=== PATIENT | female | born 1990 ===

== ENCOUNTER 2020-10-26 12:54 | Outpatient (REF) | payer OTHER, SELFPAY ==
[2020-10-26 13:23] LABS: COVID-19 Test Negative (Negative)
== END 2020-10-26 12:55 | disposition home or self-care (01) ==
LOC: HO.EMPCOV 12:54
PROVIDERS: Visit Provider Internal Medicine
DX: Z20.828 Contact with and (suspected) exposure to other viral communicable diseases (principal)
CPT/HCPCS: 87635; C9803

== ENCOUNTER 2020-11-22 07:32 | Outpatient (REF) | payer OTHER, SELFPAY ==
[2020-11-22 07:50] LABS: COVID-19 Test Negative (Negative)
== END 2020-11-22 07:33 | disposition home or self-care (01) ==
LOC: HO.EMPCOV 07:32
PROVIDERS: Visit Provider Internal Medicine
DX: Z20.828 Contact with and (suspected) exposure to other viral communicable diseases (principal)
CPT/HCPCS: 87635; C9803

== ENCOUNTER 2021-01-15 08:07 | Outpatient (REF) | payer OTHER, SELFPAY ==
[2021-01-15 08:33] LABS: COVID-19 Test Negative (Negative)
== END 2021-01-15 08:08 | disposition home or self-care (01) ==
LOC: HO.EMPCOV 08:07
PROVIDERS: Visit Provider Internal Medicine
DX: Z20.822 Contact with and (suspected) exposure to COVID-19 (principal)
CPT/HCPCS: 36415; 87635; C9803

== ENCOUNTER 2021-01-21 09:19 | Outpatient (REF) | payer OTHER, SELFPAY ==
[2021-01-21 09:36] LABS: COVID-19 Test Negative (Negative); IDNOW Serial# 55D5AD1C
== END 2021-01-21 09:20 | disposition home or self-care (01) ==
LOC: HO.LAB 09:19
PROVIDERS: Visit Provider Internal Medicine
DX: Z20.822 Contact with and (suspected) exposure to COVID-19 (principal)
CPT/HCPCS: 36415; 87635; C9803

== ENCOUNTER 2021-02-07 08:00 | Outpatient (REF) | payer OTHER, SELFPAY ==
[2021-02-07 08:17] LABS: COVID-19 Test Negative (Negative); IDNOW Serial# 55D5AD1C
== END 2021-02-07 08:01 | disposition home or self-care (01) ==
LOC: HO.EMPCOV 08:00
PROVIDERS: Visit Provider Internal Medicine
DX: Z20.822 Contact with and (suspected) exposure to COVID-19 (principal)
CPT/HCPCS: 36415; 87635; C9803

== ENCOUNTER 2021-03-07 08:11 | Outpatient (REF) | payer OTHER, SELFPAY ==
[2021-03-07 08:41] LABS: COVID-19 Test Negative (Negative)
== END 2021-03-07 08:12 | disposition home or self-care (01) ==
LOC: HO.EMPCOV 08:11
PROVIDERS: Visit Provider Internal Medicine
DX: Z20.822 Contact with and (suspected) exposure to COVID-19 (principal)
CPT/HCPCS: 36415; 87635; C9803

== ENCOUNTER 2021-03-12 08:23 | Outpatient (REF) | payer OTHER, SELFPAY ==
[2021-03-12 09:04] LABS: COVID-19 Test Negative (Negative)
== END 2021-03-12 08:24 | disposition home or self-care (01) ==
LOC: HO.EMPCOV 08:23
PROVIDERS: Visit Provider Internal Medicine
DX: Z20.822 Contact with and (suspected) exposure to COVID-19 (principal)
CPT/HCPCS: 36415; 87635; C9803

== ENCOUNTER 2021-04-03 09:17 | Outpatient (REF) | payer OTHER, SELFPAY ==
[2021-04-03 09:59] LABS: COVID-19 Test Negative (Negative); IDNOW Serial# 55D5AD1C
== END 2021-04-03 09:18 | disposition home or self-care (01) ==
LOC: HO.EMPCOV 09:17
PROVIDERS: Visit Provider Internal Medicine
DX: Z20.822 Contact with and (suspected) exposure to COVID-19 (principal)
CPT/HCPCS: 36415; 87635; C9803

== ENCOUNTER 2022-02-07 14:12 | Outpatient (REF) | payer BC, SELFPAY ==
--- NOTE | ~2022-02-07 | US_ITS ---
EXAMINATION: US VENOUS ULTRASOUND WITH DOPPLER LOWER EXTREMITY, LEFT CLINICAL INFORMATION: Swollen left ankle. COMPARISON: None TECHNIQUE: Ultrasound of the deep veins is performed from the hip to the calf with compression sonography and color and pulse Doppler assessment. Spectral analysis with color-flow imaging is performed. FINDINGS: There is normal venous compression and respiratory variation and augmented flow. The visualized common femoral vein, superficial femoral vein, profunda femoral vein, popliteal vein, and the trifurcation region shows no evidence of deep venous thrombosis. There is no significant popliteal fossa cyst. If the patient's symptoms persist, followup ultrasound in 5 days 7 days might be of value to exclude proximal propagation from a non-visualized calf vein. US/US venous duplex LE LT IMPRESSION: No DVT demonstrated in the left lower extremity.
== END 2022-02-07 14:13 | disposition home or self-care (01) ==
LOC: HO.US 14:12
PROVIDERS: PCP Internal Medicine; Visit Provider Internal Medicine
DX: M79.89 Other specified soft tissue disorders (principal); M25.472 Effusion, left ankle
CPT/HCPCS: 93971

== ENCOUNTER 2022-03-24 22:41 | Emergency (ER) | payer BC, SELFPAY | END 2022-03-24 23:27 | disposition left against medical advice (07) | PROVIDERS: Emergency Provider Emergency Medicine; PCP Internal Medicine | DX: O26.93 Pregnancy related conditions, unspecified, third trimester (principal); Z3A.28 28 weeks gestation of pregnancy ==

== ENCOUNTER 2022-03-25 10:57 | Outpatient (REF) | payer BC, SELFPAY ==
--- NOTE | ~2022-03-25 | US_ITS ---
EXAMINATION: US OBSTETRICAL (BIOPHYSICAL PROFILE) CLINICAL INFORMATION: No movement COMPARISON: None TECHNIQUE: Ultrasound of the pelvis is performed. Biophysical profile is performed over 30 minutes with assessment of breathing, gross body movement, tone, and qualitative amniotic fluid volume. Each matrix is scored 0 or 2, depending if the metric is present. Maximum total score possible is 8. Examination is not intended to assess for anomalies. FINDINGS: POSITION: Cephalic PLACENTA: Anterior AMNIOTIC FLUID INDEX: 22.7 cm. This is upper normal for gestational age. 95th percentiles 23.4 cm. CARDIAC ACTIVITY: 124 beats per minute BIOPHYSICAL PROFILE: Motion: 2 Tone: 2 Breathin Amniotic Fluid: 2 Total score: 8 US/US OB biophysical profile IMPRESSION: 1. Single intrauterine gestation in cephalic position with anterior placenta. 2. Total biophysical score is 8 (scale 0-8). 3. Amniotic fluid index 22.7 cm. which is upper normal. 4. cardiac activity 124 beats per minute.
--- NOTE | ~2022-03-25 | US_ITS ---
EXAMINATION: US VENOUS ULTRASOUND WITH DOPPLER LOWER EXTREMITY, BILATERAL CLINICAL INFORMATION: Leg pain. COMPARISON: None TECHNIQUE: Ultrasound of the deep veins is performed from the hip to the calf with compression sonography and color and pulse Doppler assessment. Spectral analysis with color-flow imaging is performed. FINDINGS: RIGHT: There is normal venous compression and respiratory variation and augmented flow. The visualized common femoral vein, superficial femoral vein, profunda femoral vein, popliteal vein, and the trifurcation region shows no evidence of deep venous thrombosis. No right popliteal cyst. Positive superficial thrombus is seen in the greater saphenous vein at the level the mid thigh with no associated vascular flow. LEFT: There is normal venous compression and respiratory variation and augmented flow. The visualized common femoral vein, superficial femoral vein, profunda femoral vein, popliteal vein, and the trifurcation region shows no evidence of deep venous thrombosis. No left popliteal cyst. The subcutaneous soft tissues are unremarkable. If the patient's symptoms persist, followup ultrasound in 5 days 7 days might be of value to exclude proximal propagation from a non-visualized calf vein. US/US venous duplex LE BI IMPRESSION: 1. No evidence for deep venous thrombosis bilaterally. 2. Positive superficial thrombus in the right greater saphenous vein at the level of the mid thigh.
== END 2022-03-25 10:58 | disposition home or self-care (01) ==
LOC: HO.US 10:57
PROVIDERS: PCP Internal Medicine; Visit Provider Internal Medicine
DX: O26.893 Other specified pregnancy related conditions, third trimester (principal); Z3A.30 30 weeks gestation of pregnancy; M79.604 Pain in right leg; M79.605 Pain in left leg
CPT/HCPCS: 76819; 93970

== ENCOUNTER 2022-04-14 13:55 | Outpatient (REF) | payer BC, SELFPAY ==
--- NOTE | ~2022-04-14 | US_ITS ---
EXAMINATION: US VENOUS ULTRASOUND WITH DOPPLER LOWER EXTREMITY, RIGHT CLINICAL INFORMATION: Follow-up superficial thrombophlebitis COMPARISON: 03/25/2022 TECHNIQUE: Ultrasound of the deep veins is performed from the hip to the calf with compression sonography and color and pulse Doppler assessment. Spectral analysis with color-flow imaging is performed. FINDINGS: Superficial thrombophlebitis is again observed in the right proximal and mid medial thigh, with improvement from the prior study. With regards to the deep venous system, there is normal color flow, compression, phasic flow and augmentation with no evidence for acute DVT. US/US venous duplex LE RT IMPRESSION: Improving superficial thrombophlebitis.
== END 2022-04-14 13:56 | disposition home or self-care (01) ==
LOC: HO.US 13:55
PROVIDERS: Visit Provider Internal Medicine Medical Oncology
DX: I80.01 Phlebitis and thrombophlebitis of superficial vessels of right lower extremity (principal)
CPT/HCPCS: 93971

== ENCOUNTER 2022-05-16 15:46 | Outpatient (REF) | payer BC, SELFPAY ==
--- NOTE | ~2022-05-16 | US_ITS ---
EXAMINATION: US VENOUS ULTRASOUND WITH DOPPLER LOWER EXTREMITY, RIGHT CLINICAL INFORMATION: Right lower extremity pain, thrombophlebitis COMPARISON: 04/14/2022 TECHNIQUE: Ultrasound of the deep veins is performed from the hip to the calf with compression sonography and color and pulse Doppler assessment. Spectral analysis with color-flow imaging is performed. FINDINGS: There is normal venous compression and respiratory variation and augmented flow. The visualized common femoral vein, superficial femoral vein, profunda femoral vein, popliteal vein, and the trifurcation region shows no evidence of deep venous thrombosis. There is no significant popliteal fossa cyst. Dilated professional varicosities seen in the upper mid thigh which demonstrates partial compressibility with small amount of residual thrombus still seen no significant change compared to the prior exam If the patient's symptoms persist, followup ultrasound in 5 days 7 days might be of value to exclude proximal propagation from a non-visualized calf vein. US/US venous duplex LE RT IMPRESSION: No DVT demonstrated in the right lower extremity. Stable appearing superficial thrombophlebitis in a dilated varicose vein
== END 2022-05-16 15:47 | disposition home or self-care (01) ==
LOC: HO.US 15:46
PROVIDERS: Visit Provider Internal Medicine Medical Oncology
DX: M79.604 Pain in right leg (principal); I80.3 Phlebitis and thrombophlebitis of lower extremities, unspecified
CPT/HCPCS: 93971

== ENCOUNTER 2023-09-12 09:01 | Outpatient (AMB) | payer BC, SELFPAY ==
[2023-09-12 09:06] VITALS: BP 92/70; PULSE 118; TEMP 36.9; O2SAT 99; BMI 32.6
--- NOTE | 2023-09-12 09:06 | MHC.OFFWIV ---
Intake Vital Signs 09/12/23 09:06 Height 5 ft Weight 75.75 kg BMI 32.6 BP 92/70 Blood Pressure Location Lt brachial Position Sitting Pulse 118 H Pulse Source Pulse Oximeter Temp 98.4 F Temp Source Oral Pulse Oximetry (%) 99 Oxygen Delivery Method Room Air Intake Visit Reasons: EP, cough, congestion, heart palpitations(masked) Intake Note: Pt is here today c/o severe H/A and bodyaches with heart palpitations Patient Tobacco Use Status: Never used Tobacco Allergies No Known Allergies [No Known Allergies*] Allergy (Verified 09/12/23 09:08) Do you need a note to return to daycare/school/sports/work: No HPI HPI Comments History of Present Illness Details 908 This is a 32-year-old female without significant medical history presenting with fatigue, malaise, body aches and pains, headache, sore throat, and sensation that hearts racing for the past few days. Patient reports she is just getting over COVID, she had COVID in July. 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 She reports all the symptoms came on suddenly 2 days ago. Denies fevers, chills, vision changes, dizziness, weakness, nausea, vomiting, abdominal pain, diarrhea. Not a smoker. No history of PE or DVT. No recent travel reported. Physical exam benign, neuro nonfocal. Likely viral illness versus migraine versus headache. Unlikely meningitis, encephalitis, intracranial hemorrhage, stroke, posterior stroke. Unlikely pneumonia, acute coronary syndrome, pulmonary embolism, arrhythmia. EKG showing sinus tachycardia likely secondary to viral illness. Will discharge patient home with Reglan, Benadryl and Tylenol for headache, will obtain COVID test for viral symptoms.. Educated patient on diagnosis and treatment plan, answered all question, patient verbalizes understanding. At this time patient will be discharged home, advised to return with new or worsening symptoms. Educated on worrisome signs and symptoms and when to return. At this time I feel comfortable discharge home. [facility] Medical History No pertinent past medical history Surgical History Previous section History of cyst of breast Family History Mother Cervical cancer Father No problems noted. 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) Do you presently have visiting nurse or other home services: No Alcohol intake: never Patient Tobacco Use Status: Never used Tobacco e-Cigarette/Vaping Use: Never Used Second Hand Smoke Exposure: No service: No Current occupational status: employed Current occupational exposures/hazards: No Cognitive needs: No Hearing needs: No Vision needs: Yes Review of Systems Const Details: Constitutional : No Weight loss, No Fever, No Chills, + Fatigue, + Malaise ENT/Mouth : No sore throat, No Rhinorrhea Eyes: No Eye Pain, No Swelling, No Redness Cardiovascular : No Chest Pain, No SOB, No Dyspnea on Exertion, No Orthopnea, No Edema, No Palpitations Respiratory : No Cough, No Sputum, No Wheezing Gastrointestinal : No Nausea, No Vomiting, No Diarrhea, No Constipation, No abdominal Pain, No Hematochezia, No Melena Genitourinary : No Dysuria, No Urinary Frequency, No Hematuria, Musculoskeletal : No joint pain, + Myalgias, No Joint Swelling Skin : No Skin Lesions, No rash Neuro : No Weakness, No Numbness, No Dizziness, + Headache Psych : No Anxiety/Panic, No Depression All other systems reviewed and are negative All systems reviewed & are unremarkable except as noted in HPI and below Physical Exam Vital Signs: Last Vital Signs Temp 98.4 F 09/12/23 09:06 Pulse 118 H 09/12/23 09:06 BP 92/70 09/12/23 09:06 Pulse Ox 99 09/12/23 09:06 Oxygen Delivery Method Room Air 09/12/23 09:06 BMI result Body Mass Index 32.6 vss Appearance: Alert.? Oriented X3.? No acute distress.? Head: Normocephalic, atraumatic, no step-offs or deformities Eyes: Pupils equal, round and reactive to light.? Extraocular movements intact, pain-free ENT: Pharynx normal.? Neck: Normal inspection.? Neck supple.? Negative Kernig and Brudzinski CVS: Normal heart rate and rhythm.? Pulses normal.? Respiratory: No respiratory distress.? Breath sounds normal.? Abdomen: Soft and nontender.? Skin: Skin warm and dry.? Normal skin color.? Normal skin turgor.? Extremities: No lower extremity edema.? No calf ttp. 5/5 strength to bilateral upper and lower extremities Neuro: Oriented X 3.? No motor deficit.? No sensory deficit. CN 2-12 intact . Normal [id number], [id number], steady tandem gait normal coordination. Negative Romberg and pronator drift Assessment & Plan Assessment & Plan (1) Viral illness: Code(s): B34.9 - Viral infection, unspecified Plan Take your medications as prescribed. If you were prescribed antibiotics today, it is important that you take your medication to their entirety, do not skip any doses, do not finish them early. Follow-up with your primary care provider this week. Return to the emergency department with new or worsening symptoms. Such as fevers, chills, chest pain, shortness of breath, nausea, vomiting, dizziness, headache, vision changes, lethargy In case of emergency call 911 Orders: Orders BinaxNOW Covid-19 Ag Today B34.9 - Viral infection, unspecified AMB EKG-In Office Today B34.9 - Viral infection, unspecified SARS-CoV2/FLU/RSV Today B34.9 - Viral infection, unspecified Medications: New metoclopramide HCl (Reglan) 10 mg PO Q6H PRN 30 tabs 0RF headache diphenhydramine HCl (Benadryl Allergy) 50 mg PO TID PRN 30 tabs 0RF allergy symptoms acetaminophen (Tylenol) 650 mg (2 x 325 mg) PO Q6H PRN 30 tabs 0RF pain Coding Level of Care Code Est Pt Level 3 (34325) Diagnoses Viral illness B34.9
== END 2023-09-12 14:55 | disposition home or self-care (01) ==
PROVIDERS: PCP Internal Medicine; Visit Provider Physician Assistant
DX: B34.9 Viral infection, unspecified (principal)
CPT/HCPCS: 99213

== ENCOUNTER 2023-09-12 09:27 | Outpatient (REF) | payer BC, SELFPAY ==
[2023-09-12 12:29] LABS: Influenza A PCR NEGATIVE (Negative); Influenza B PCR NEGATIVE (Negative); Resp Syncy Virus RNA Qual PCR NEGATIVE (Negative); SARS COV2 PCR INHOUSE NEGATIVE (Negative)
== END 2023-09-12 09:28 | disposition home or self-care (01) ==
LOC: HO.LAB 09:27
PROVIDERS: Visit Provider Physician Assistant
DX: Z20.822 Contact with and (suspected) exposure to COVID-19 (principal)
CPT/HCPCS: 0241U

== ENCOUNTER 2023-09-12 09:30 | Outpatient (REF) | payer BC, SELFPAY ==
[2023-09-12 10:01] LABS: Binax Now Covid-19 Ag Negative (Negative); Binax Performed by: HO.TORG
[2023-09-12 10:02] LABS: Binax Internal Control QC Valid
== END 2023-09-12 09:31 | disposition home or self-care (01) ==
LOC: HO.HMGCLDS 09:30
PROVIDERS: PCP Internal Medicine; Visit Provider Physician Assistant
DX: B34.9 Viral infection, unspecified (principal); Z11.52 Encounter for screening for COVID-19
CPT/HCPCS: 87811

== ENCOUNTER 2023-09-24 11:22 | Outpatient (AMB) | payer BC, SELFPAY ==
--- NOTE | 2023-09-24 11:37 | AM.OFFVISNUR ---
Intake Intake Visit Reasons: Flu Shot Allergies No Known Allergies [No Known Allergies*] Allergy (Verified 09/12/23 09:08) Office Procedures Flu Questionnaire Does the patient have a severe egg allergy?: No Does the patient have severe life threatening allergies?: No Does the patient have a fever or illness today?: No Has the patient ever had Guillain-Bono Syndrome?: No Has the patient ever had any past reaction to a flu shot?: No Immunizations flu vacc [id number] 6mos up(PF) 60 mcg(15 mcgx4)/0.5 mL IM syringe Performing Provider: Adarsh Jarvis MD Performing Location: [facility] Administered by: Zoey Pereyra RN on 09/24/23 11:37 Dose Route Admin Location Dispensed Lot Number Expiration Date NDC Psychiatric Np 0.5 mL IM Left Deltoid 0.5 mL [id number] 05/22/24 46893-553-62 [employer] VIS Given Date VIS Provided VIS Publication Date 09/24/23 Single Vaccine 21 Eligibility Eligibility Date Funding Source Not [facility] Eligible 09/24/23 Private Coding Assessment & Plan Assessment & Plan Orders: Orders Influenza [id number] Immunization Today Z23 - Encounter for immunization
== END 2023-09-24 11:39 | disposition home or self-care (01) ==
PROVIDERS: PCP Internal Medicine; Visit Provider Internal Medicine
DX: Z23 Encounter for immunization (principal)
CPT/HCPCS: 90471; 90686

== ENCOUNTER 2023-10-05 09:33 | Outpatient (AMB) | payer BC, SELFPAY ==
--- NOTE | 2023-10-05 09:31 | AM.OFFVISNUR ---
Intake Intake Visit Reasons: PPD Allergies No Known Allergies [No Known Allergies*] Allergy (Verified 09/12/23 09:08) Office Meds tuberculin PPD 5 tub. unit/0.1 mL intradermal injection solution Performing Provider: Adarsh Jarvis MD [facility] Administered by: Zoey Pereyra RN on 10/05/23 09:31 Dose Route Admin Location Dispensed Lot Number Expiration Date NDC Business Analyst Manager 0.1 mL intradermal 0.1 mL [id number] 09/21/26 33354-018-26 [employer] Coding Assessment & Plan Assessment & Plan Orders: Orders AMB PPD Planted Today Z11.1 - Encounter for screening for respiratory tuberculosis
== END 2023-10-05 09:34 | disposition home or self-care (01) ==
LOC: HO.HMGH 09:33
PROVIDERS: PCP Internal Medicine; Visit Provider Internal Medicine
DX: Z11.1 Encounter for screening for respiratory tuberculosis (principal)
CPT/HCPCS: 86580

== ENCOUNTER 2023-10-16 10:11 | Outpatient (REF) | payer BC, SELFPAY ==
[2023-10-16 10:21] LABS: MANUAL DIFF FLAG NO
[2023-10-16 10:26] LABS: Basophils Percent Auto 0.5 % (0-2); Eosinophils Percent Auto 0.7 % (0-4); Hematocrit 39.8 % (37.0-47.0); Hemoglobin 13.5 g/dl (12.0-16.0); Imm Gran Abs Auto 0.01 X10*3/uL (0.00-0.03); Imm Gran Pct Auto 0.2 % (0.0-0.4); Lymphocytes Absolute Auto 2.4 X10*3/uL (1.2-4.9); Lymphocytes Percent Auto 39.3 % (20-40); Mean Corpuscular HGB Conc 33.9 g/dl (31.0-35.0); Mean Corpuscular Hemoglobin 31.3 pg (27.0-33.0); Mean Corpuscular Volume 92.1 fL (80.0-98.0); Mean Platelet Volume 9.8 fL (9.4-12.3); Monocytes Absolute Auto 0.5 X10*3/uL (0.1-1.2); Monocytes Percent Auto 7.5 % (2-11); Neutrophils Absolute Auto 3.2 x10*3/uL (2.0-8.3); Neutrophils Percent Auto 51.8 % (45-73); Platelet Count 247 X10*3/uL (160-400); Red Blood Count 4.32 X10*6/uL (4.20-5.50); Red Cell Distribution Width 11.9 % (11.0-16.0); White Blood Count 6.1 X10*3/uL (4.8-10.8)
[2023-10-16 11:04] LABS: Estimated Average Glucose 97 mg/dL; Hemoglobin A1C 107.5631 umol/L
[2023-10-16 11:10] LABS: Alanine Aminotransferase 27 U/L (0-31); Albumin Level 4.5 g/dL (3.5-5.0); Alkaline Phosphatase 65 U/L (39-117); Anion Gap 12 (12-20); Aspartate Amino Transferase 24 U/L (5-31); Bilirubin Total 1.1 mg/dL (0.0-1.0); Blood Urea Nitrogen 10 mg/dL (9-16); Calcium 9.6 mg/dL (8.4-10.2); Carbon Dioxide 26 mmol/L (22-29); Chloride 106 mmol/L (96-108); Cholesterol 235 mg/dL (<200); Estimated Glomerular Filt Rate > 60; Glucose Random 82 mg/dL (60-115); HDL Cholesterol 42 mg/dL (>40); LDL Cholesterol Calculated 176 mg/dL (<100); Potassium 4.1 mmol/L (3.3-5.1); Sodium 140 mmol/L (135-145); Total Protein 8.5 g/dL (6.5-8.0); Triglycerides 87 mg/dL (<150)
[2023-10-16 11:28] LABS: Free T4 (Free Thyroxine) 0.93 ng/dL (0.71-1.85); Thyroid Stimulating Hormone 1.63 uIU/mL (0.32-4.0)
[2023-10-16 11:41] LABS: Folate 17.2 ng/mL (> or = 4.0); Vitamin B12 1329 pg/mL (200-900)
== END 2023-10-16 10:12 | disposition home or self-care (01) ==
LOC: HO.LAB 10:11
PROVIDERS: PCP Internal Medicine; Visit Provider Internal Medicine
DX: I80.9 Phlebitis and thrombophlebitis of unspecified site (principal); E78.00 Pure hypercholesterolemia, unspecified; E55.9 Vitamin D deficiency, unspecified; R73.9 Hyperglycemia, unspecified
CPT/HCPCS: 36415; 80053; 80061; 82306; 82607; 82746; 83036; 84439; 84443; 85025

== ENCOUNTER 2023-10-19 14:58 | Outpatient (AMB) | payer BC, SELFPAY ==
--- NOTE | 2023-10-19 14:59 | A.OFFPC_ITS ---
Vital Signs 10/19/23 15:00 Height 5 ft Weight 162 lb BMI 31.6 Blood Pressure Location Lt brachial Position Sitting Pulse 70 Pulse Source Pulse Oximeter Pulse Oximetry (%) 100 Oxygen Delivery Method Room Air Intake Visit Reasons: Annual PE Intake Note: Patient is here today for a physical. 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 Allergies No Known Allergies [No Known Allergies*] Allergy (Verified 10/19/23 15:00) Medication List - Last Reconciled 10/19/23 by Adarsh Jarvis MD multivitamin 1 tab PO DAILY Tobacco use date assessed: 10/19/23 Dental Screening Dental Screen Date: 10/19/23 Did you have a dental visit in the last 12 months?: Yes Did you have a dental problem in the last 6 months where you did not have access to dental care?: No Was dental information given to patient?: Patient has dentist HPI Annual PE HPI Details 32-year-old obese female with hyperchole sterolemia coming in for physical exam last seen in September 2022.goes to [facility] and states had an injection [facility] Medical History No pertinent past medical history Surgical History Previous section History of cyst of breast Family History Mother Cervical cancer Father No problems noted. 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 1. Little interest or pleasure in doing things: not at all 2. Feeling down, depressed, or hopeless: not at all 3. Trouble falling or staying asleep, or sleeping too much: not at all 4. Feeling tired or having little energy: not at all 5. Poor appetite or overeating: not at all 6. Feeling bad about yourself - or that you are a failure or have let yourself or your family down: not at all 7. Trouble concentrating on things, such as reading the newspaper or watching television: not at all 8. Moving or speaking so slowly that other people could have noticed. Or the opposite - being so fidgety or restless that you have been moving around a lot more than usual: not at all 9. Thoughts that you would be better off or of hurting yourself in some way: not at all Total score: 0 Depression Screening Interpretation: Negative Depression Screening Done: Yes 15469 - PHQ-9 Billing: Yes Source: Developed by Drs. Jose Ramon Maharaj, Ciara Putnam, Louis Monsivais and colleagues, with an educational marcus from [employer]. Thrive Questionnaire Date Thrive assessed: 10/13/22 AUDIT C Alcohol Use Questionnaire (AUDIT-C) 1. How often do you have a drink containing alcohol?: Never Total Score: 0 Score Reviewed/Action Taken: Yes EBONY-7 AMB Questionnaire EBONY-7 Date EBONY - 7 assessed: 10/19/23 Feeling nervous, anxious, or on edge: 0 = Not at all Not being able to stop or control worryin = Not at all Worrying too much about different things: 0 = Not at all Trouble relaxin = Not at all Being so restless that it is hard to sit still: 0 = Not at all Becoming easily annoyed or irritable: 0 = Not at all Feeling afraid as if something awful might happen: 0 = Not at all Total EBONY-7 score (0-4 normal; 5-9 mild; 10-14 moderate; 15-21 severe): 0 Source: Developed by Drs. Jose Ramon Maharaj, Louis Sandoval and colleagues, with an educational marcus from [employer]. Review of Systems Const Denies poor appetite and Denies weakness Eyes Denies no additional complaints ENT Reports Normal hearing present, Denies dizziness, Denies nasal congestion, Denies tinnitus and Denies sore throat Card Denies chest pain, Denies syncope, Denies rapid heart rate and Denies dyspnea Resp Denies cough and Denies dyspnea GI Denies change in stool character, Reports constipation, Denies diarrhea, Denies nausea and Denies vomiting Denies urinary frequency, Denies difficulty voiding and Denies dysuria Neuro Reports Normal hearing present, Denies confusion, Denies dizziness, Denies syncope and Denies weakness Psych Denies confusion Physical exam (Primary Care) Vital Signs: Last Vital Signs Pulse 70 10/19/23 15:00 Pulse Ox 100 10/19/23 15:00 Oxygen Delivery Method Room Air 10/19/23 15:00 BMI result Body Mass Index 31.6 Tobacco/Smoking Status: Tobacco use Status Tobacco use date assessed 10/19/23 10/19/23 15:05 Patient Tobacco Use Status Never used Tobacco 10/19/23 15:05 e-Cigarette/Vaping Use Never Used 10/19/23 15:05 PHQ-9: PHQ-9 Score PHQ-9: Total score 0 10/19/23 15:05 Depression Screening Interpretation: Negative Thrive Assessment: Date of Thrive Assessment Date Thrive assessed 10/13/22 10/19/23 15:05 Const General: No confusion Orientation/consciousness: No confusion HENMT Head: Yes normocephalic Ears: external ears normal and TM's normal bilaterally Face and sinus: Yes normal facial exam Mouth: moist mucous membranes Throat: Yes tonsils normal Eyes Conjunctivae: conjunctivae normal Pupils: Equal, round and reactive pupils present and Pupil accommodation reflex normal Direct Ophthalmoscopy: normal light reflex Neck Neck: No lymphadenopathy Thyroid: Thyroid normal Chest Chest palpation & inspection: normal inspection of the chest Resp Effort & Inspection: normal respiratory effort and no audible wheezes Auscultation: clear to auscultation bilaterally, no crackles, no wheezes and lung sounds not diminished Cardio Rate: regular rate Rhythm: regular rhythm Peripheral pulses: radial pulses present and dorsalis pedis present GI Palpation (GI): no masses Auscultation: normal bowel sounds and normoactive bowel sounds Rectal Exam - Female: deferred Skin General skin exam: no rashes or lesions noted Rashes: no rashes Neuro General: No confusion Cranial nerves: Yes Equal, round and reactive pupils present and Yes Normal hearing present Cognition (Neuro): normal cognition Gait exam (Neuro): Normal gait present Motor exam (neuro): 5/5 motor strength present throughout Deep tendon reflexes (DTR's): Right brachioradialis reflex intensity grade: 2+, Left brachioradialis reflex intensity grade: 2+, Right patellar reflex intensity grade: 2+ and Left patellar reflex intensity grade: 2+ Extrem General: No edema Assessment and Plan Assessment & Plan (1) Annual physical exam: Code(s): Z00.00 - Encounter for general adult medical examination without abnormal findings (2) Hypercholesterolemia: Code(s): E78.00 - Pure hypercholesterolemia, unspecified Plan: Avoid fried foods, chicken skin, eggs, butter margarine, pastries and meat. Be it pork or beef they have a lot of cholesterol LDL goal of less than 130 and triglyceride of less than 150. goes to [facility] and doing good Orders: Orders Comprehensive Met. Panel 6 Months E78.00 - Pure hypercholesterolemia, unspecified Lipid Panel 6 Months E78.00 - Pure hypercholesterolemia, unspecified Thyroid Stimulating Hormone 6 Months E78.00 - Pure hypercholesterolemia, unspecified Complete Blood Count Auto Diff 6 Months E78.00 - Pure hypercholesterolemia, unspecified Free T4 (Free Thyroxine) 6 Months E78.00 - Pure hypercholesterolemia, unspecified Coding Level of Care Code Est Pt Prev Care 18-39y(06162) Diagnoses Annual physical exam Z00.00 Hypercholesterolemia E78.00
[2023-10-19 15:00] VITALS: PULSE 70; O2SAT 100; BMI 31.6
== END 2023-10-19 15:39 | disposition home or self-care (01) ==
PROVIDERS: Visit Provider Internal Medicine
DX: Z00.00 Encounter for general adult medical examination without abnormal findings (principal); E78.00 Pure hypercholesterolemia, unspecified
CPT/HCPCS: 99395

== ENCOUNTER 2024-01-01 08:33 | Outpatient (AMB) | payer BC, SELFPAY ==
[2024-01-01 08:49] VITALS: BP 100/70; PULSE 78; TEMP 37.3; O2SAT 98
--- NOTE | 2024-01-01 08:49 | MHC.OFFWIV ---
Intake Vital Signs 01/01/24 08:49 Height 5 ft BP 100/70 Blood Pressure Location Lt brachial Position Sitting Pulse 78 Pulse Source Pulse Oximeter Temp 99.1 F Temp Source Oral Pulse Oximetry (%) 98 Oxygen Delivery Method Room Air Intake Visit Reasons: EP Pain ( 2021) 1 week Intake Note: pt is here for c/o pain in c section scarring, pt denies rash or redness, pt state its internally and states it feels like its ripping , states its been over 1 week Patient Tobacco Use Status: Never used Tobacco Allergies No Known Allergies [No Known Allergies*] Allergy (Verified 01/01/24 08:50) Do you need a note to return to daycare/school/sports/work: Yes HPI EP Pain ( 2021) 1 week HPI Details This is 33 year old female patient who presents today with a 1-2 week history of lower abdominal/uterine pain beneath her section scar. She had a primary C/S 05/27/22 at [facility] without complications. She previously had a vaginal delivery. She reports no issues post- following . She states she heeled well and has always been active. About 1-2 weeks ago she started having constant pain beneath C/S scar. Denies any inciting event to this. She reports this as ripping sensation. She denies any chance of . Periods have been regular. Partner had vasectomy. She denies any abnormal vaginal discharge or odor. Denies any fever, chills, or flank pain. Denies any urinary symptoms. Reports pelvic pain with most movement and bearing down for BM. Denies known history of uterine fibroids/cysts. [facility] Medical History No pertinent past medical history Surgical History Previous section History of cyst of breast Family History Mother Cervical cancer Father No problems noted. 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 resident care coordinator to a significant other at home: Yes (grandparents) Do you presently have visiting nurse or other home services: No Alcohol intake: never Patient Tobacco Use Status: Never used Tobacco e-Cigarette/Vaping Use: Never Used Second Hand Smoke Exposure: No service: No Current occupational status: employed Current occupational exposures/hazards: No Cognitive needs: No Hearing needs: No Vision needs: Yes Review of Systems Const All systems reviewed & are unremarkable except as noted in HPI and below Physical Exam Vital Signs: Last Vital Signs Temp 99.1 F 01/01/24 08:49 Pulse 78 01/01/24 08:49 BP 100/70 01/01/24 08:49 Pulse Ox 98 01/01/24 08:49 Oxygen Delivery Method Room Air 01/01/24 08:49 Const General: cooperative, healthy appearing and no acute distress Nutritional Appearance: average body habitus Resp Effort & Inspection: normal respiratory effort Auscultation: clear to auscultation bilaterally Cardio Palpation: normal PMI Rate: regular rate Rhythm: regular rhythm GI Inspection: Yes normal to inspection Palpation (GI): Soft to palpation Auscultation: normal bowel sounds Other: Tenderness to palpation in pelvic area beneath well-healed scar. No erythema, rash, or excessive warmth. General: Yes no CVA tenderness Back/Spine/Pelvis Back: no CVA tenderness Skin General skin exam: no rashes or lesions noted Extrem General: Yes capillary refill normal Psych Appearance: grossly normal Mental Status: mental status grossly normal Speech and movement: Normal speech and movement present Results AMB Urinalysis, Automated UA Leukoctes 0 Rodrigo/uL Last Edit by Rolando Claudio CMA on 01/01/24 09:03 UA Nitrite Negative Last Edit by Rolando Claudio CMA on 01/01/24 09:03 UA Urobilinogen 0.2 mg/dL Last Edit by Rolando Claudio CMA on 01/01/24 09:03 UA Protein 0 mg/dL Last Edit by Rolando Claudio CMA on 01/01/24 09:03 UA pH 6.0 Last Edit by Rolando Claudio CMA on 01/01/24 09:03 UA Blood 0 Anuel/uL Last Edit by Rolando Claudio CMA on 01/01/24 09:03 UA Specific [place] 1.020 Last Edit by Rolando Claudio CMA on 01/01/24 09:03 UA Ketone Negative Last Edit by Rolando Claudio CMA on 01/01/24 09:03 UA Bilirubin 0 mg/dL Last Edit by Rolando Claudio CMA on 01/01/24 09:03 UA Glucose 0 mg/dL Last Edit by Rolando Claudio CMA on 01/01/24 09:03 Assessment & Plan Assessment & Plan (1) Pelvic pain: Code(s): R10.2 - Pelvic and perineal pain Plan: 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) and they are able to see her on Thursday for evaluation. I would like her to start taking Ibuprofen and utilize a heating pad. If she develops any worsening pain or fever/chills, she should go to the ER. She verbalizes understanding and agrees to plan. Orders: Orders AMB Urinalysis Automated Today Z13.9 - Encounter for screening, unspecified Medications: New ibuprofen 600 mg PO Q8H PRN 60 tabs 0RF pain R10.2 - Pelvic and perineal pain Coding Level of Care Code Est Pt Level 3 (42658) Diagnoses Pelvic pain R10.2
== END 2024-01-01 09:40 | disposition home or self-care (01) ==
PROVIDERS: PCP Internal Medicine; Visit Provider Nurse Practitioner Family
DX: R10.2 Pelvic and perineal pain (principal)
CPT/HCPCS: 81003; 99213

== ENCOUNTER 2024-04-12 08:51 | Outpatient (REF) | payer BC, SELFPAY ==
[2024-04-12 09:04] LABS: MANUAL DIFF FLAG NO
[2024-04-12 09:49] LABS: Basophils Percent Auto 0.5 % (0-2); Eosinophils Absolute Auto 0.1 X10*3/uL (0.0-0.4); Eosinophils Percent Auto 1.2 % (0-4); Hematocrit 40.3 % (37.0-47.0); Hemoglobin 13.3 g/dl (12.0-16.0); Imm Gran Abs Auto 0.02 X10*3/uL (0.00-0.03); Imm Gran Pct Auto 0.3 % (0.0-0.4); Lymphocytes Absolute Auto 2.5 X10*3/uL (1.2-4.9); Lymphocytes Percent Auto 43.1 % (20-40); Mean Corpuscular Hemoglobin 31.1 pg (27.0-33.0); Mean Corpuscular Volume 94.4 fL (80.0-98.0); Mean Platelet Volume 10.2 fL (9.4-12.3); Monocytes Absolute Auto 0.4 X10*3/uL (0.1-1.2); Monocytes Percent Auto 6.9 % (2-11); Neutrophils Absolute Auto 2.8 x10*3/uL (2.0-8.3); Platelet Count 242 X10*3/uL (160-400); Red Blood Count 4.27 X10*6/uL (4.20-5.50); Red Cell Distribution Width 12.6 % (11.0-16.0); White Blood Count 5.8 X10*3/uL (4.8-10.8)
[2024-04-12 10:07] LABS: Alanine Aminotransferase 26 U/L (0-31); Albumin Level 4.2 g/dL (3.5-5.0); Alkaline Phosphatase 68 U/L (39-117); Anion Gap 13 (12-20); Aspartate Amino Transferase 20 U/L (5-31); Blood Urea Nitrogen 8 mg/dL (9-16); Calcium 9.5 mg/dL (8.4-10.2); Carbon Dioxide 28 mmol/L (22-29); Chloride 105 mmol/L (96-108); Cholesterol 187 mg/dL (<200); Estimated Glomerular Filt Rate > 60; Glucose Random 79 mg/dL (60-115); HDL Cholesterol 41 mg/dL (>40); LDL Cholesterol Calculated 120 mg/dL (<100); Potassium 4.6 mmol/L (3.3-5.1); Sodium 141 mmol/L (135-145); Total Protein 7.7 g/dL (6.5-8.0); Triglycerides 131 mg/dL (<150)
[2024-04-12 10:25] LABS: Free T4 (Free Thyroxine) 0.89 ng/dL (0.71-1.85); Thyroid Stimulating Hormone 1.45 uIU/mL (0.32-4.0)
== END 2024-04-12 08:52 | disposition home or self-care (01) ==
LOC: HO.LAB 08:51
PROVIDERS: PCP Internal Medicine; Visit Provider Internal Medicine
DX: E78.00 Pure hypercholesterolemia, unspecified (principal)
CPT/HCPCS: 36415; 80053; 80061; 84439; 84443; 85025

== ENCOUNTER 2024-04-14 11:13 | Outpatient (AMB) | payer BC, SELFPAY ==
--- NOTE | 2024-04-14 11:15 | MHC.PC.OV ---
Vital Signs 04/14/24 11:16 Height 5 ft Weight 164 lb BMI 32.0 BP 118/80 Blood Pressure Location Lt brachial Position Sitting Intake Visit Reasons: 6M Follow up Intake Note: Patient here for a 6 month follow up Bench Tool Maker Required: No Accompanied by: Self / Same As Patient Allergies No Known Allergies [No Known Allergies*] Allergy (Verified 04/14/24 11:17) Tobacco use date assessed: 04/14/24 Dental Screening Dental Screen Date: 04/14/24 Did you have a dental visit in the last 12 months?: Yes Did you have a dental problem in the last 6 months where you did not have access to dental care?: No Was dental information given to patient?: Patient has dentist HPI 6M Follow up HPI Details 33-year-old obese female with hypercholesterolemia last seen in September 2023 for physical exam patient is here for follow-up. Patient has gone to walk-in clinic due to pain in the abdomen section was May 2022. did see Gynecology and had injection [facility] Medical History No pertinent past medical history Surgical History Previous section History of cyst of breast Family History Mother Cervical cancer Father No problems noted. 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 1. Little interest or pleasure in doing things: not at all 2. Feeling down, depressed, or hopeless: nearly every day 3. Trouble falling or staying asleep, or sleeping too much: not at all 4. Feeling tired or having little energy: not at all 5. Poor appetite or overeating: more than half the days 6. Feeling bad about yourself - or that you are a failure or have let yourself or your family down: several days 7. Trouble concentrating on things, such as reading the newspaper or watching television: not at all 8. Moving or speaking so slowly that other people could have noticed. Or the opposite - being so fidgety or restless that you have been moving around a lot more than usual: several days 9. Thoughts that you would be better off or of hurting yourself in some way: not at all Total score: 7 Source: Developed by Drs. Jose Ramon Maharaj, Ciara Putnam, Louis Monsivais and colleagues, with an educational marcus from [employer]. Thrive Questionnaire Date Thrive assessed: 04/14/24 I am a: Patient What is your living situation today?: I have a steady place to live Within the past 12 months, did the food you bought not last and you didn't have the money to get more?: Never true Within the past 12 months, did you worry whether your food would run out before you got money to buy more?: Never true Do you have trouble paying for medicines?: No Do you have trouble getting transportation to medical appointments?: No Do you have trouble paying your heating and electricity bill?: No Do you have trouble taking care of your child, family member or friend?: No Do you have trouble with day-to-day activities such as bathing, preparing meals, shopping, managing finances, etc.?: No Are you currently unemployed and looking for a job?: No Are you interested in more education?: No Please select the resources that you would like help with: None Currently or been in a relationship where the following occur: no concerns reported THRIVE Score: 0 AUDIT C Alcohol Use Questionnaire (AUDIT-C) 1. How often do you have a drink containing alcohol?: Never Total Score: 0 EBONY-7 AMB Questionnaire EBONY-7 Date EBONY - 7 assessed: 04/14/24 Feeling nervous, anxious, or on edge: 1 = Several days Not being able to stop or control worryin = Not at all Worrying too much about different things: 1 = Several days Trouble relaxin = Not at all Being so restless that it is hard to sit still: 0 = Not at all Becoming easily annoyed or irritable: 0 = Not at all Feeling afraid as if something awful might happen: 0 = Not at all Total EBONY-7 score (0-4 normal; 5-9 mild; 10-14 moderate; 15-21 severe): 2 Source: Developed by Drs. Jose Ramon Maharaj, Ciara Putnam, Louis Monsivais and colleagues, with an educational marcus from [employer]. Physical exam (Primary Care) Vital Signs: Last Vital Signs BP 118/80 04/14/24 11:16 BMI result Body Mass Index 32.0 Tobacco/Smoking Status: Tobacco use Status Tobacco use date assessed 04/14/24 04/14/24 11:22 Patient Tobacco Use Status Never used Tobacco 04/14/24 11:22 e-Cigarette/Vaping Use Never Used 04/14/24 11:22 PHQ-9: PHQ-9 Score PHQ-9: Total score 7 04/14/24 11:22 Thrive Assessment: Date of Thrive Assessment Date Thrive assessed 04/14/24 04/14/24 11:22 Currently or been in a relationship where the following occur: no concerns reported Const General: alert; No acute distress Eyes Conjunctivae: conjunctivae normal Resp Auscultation: clear to auscultation bilaterally Cardio Rate: regular rate Rhythm: regular rhythm GI Inspection: Yes normal to inspection Extrem General: Yes normal to inspection and No edema Assessment and Plan Assessment & Plan (1) Obesity (BMI 30-39.9): Code(s): E66.9 - Obesity, unspecified Plan: Diet and exercise (2) Hypercholesterolemia: Code(s): E78.00 - Pure hypercholesterolemia, unspecified Plan: Avoid fried foods, chicken skin, eggs, butter margarine, pastries and meat. Be it pork or beef they have a lot of cholesterol repeat LDL is down to normal diet control (3) Abdominal pain: Code(s): R10.9 - Unspecified abdominal pain (4) Major depression: Code(s): F32.9 - Major depressive disorder, single episode, unspecified Orders: Referrals Psychiatry Referral F32.9 - Major depressive disorder, single episode, unspecified Coding Level of Care Code Est Pt Level 4 (65483) Diagnoses Obesity (BMI 30-39.9) E66.9 Hypercholesterolemia E78.00 Abdominal pain R10.9 Major depression F32.9
[2024-04-14 11:16] VITALS: BP 118/80; BMI 32.0
== END 2024-04-14 11:46 | disposition home or self-care (01) ==
PROVIDERS: PCP Internal Medicine; Visit Provider Internal Medicine
DX: E78.00 Pure hypercholesterolemia, unspecified (principal); R10.9 Unspecified abdominal pain; E66.9 Obesity, unspecified; Z68.32 Body mass index [BMI] 32.0-32.9, adult; F32.9 Major depressive disorder, single episode, unspecified
CPT/HCPCS: 99214

== ENCOUNTER 2024-08-23 08:43 | Outpatient (AMB) | payer BC, SELFPAY ==
--- NOTE | 2024-08-23 08:57 | AM.OFFVISNUR ---
Intake Visit Reasons: flu shot Allergies No Known Allergies [No Known Allergies*] Allergy (Verified 04/14/24 11:17) Office Procedures Flu Questionnaire Does the patient have a severe egg allergy?: No Does the patient have severe life threatening allergies?: No Does the patient have a fever or illness today?: No Has the patient ever had Guillain-[place] Syndrome?: No Has the patient ever had any past reaction to a flu shot?: No Comment: patient consented for FLU shot Assessment & Plan Assessment & Plan Orders: Orders Influenza [id number] Immunization Today Z23 - Encounter for immunization Medications: New Fluarix Triv [id number] (PF) (flu vacc [id number] 6mos up(PF)) 0.5 mL IM ONCE 0.5 mL 0RF NS Z23 - Encounter for immunization
== END 2024-08-23 08:57 | disposition home or self-care (01) ==
PROVIDERS: PCP Internal Medicine; Visit Provider Internal Medicine
DX: Z23 Encounter for immunization (principal)

== ENCOUNTER → 2024-08-23 08:43 | Outpatient (BNVA) | payer BC, SELFPAY | PROVIDERS: PCP Internal Medicine; Visit Provider Internal Medicine | DX: Z23 Encounter for immunization (principal) | CPT/HCPCS: 90471; 90656 ==

== ENCOUNTER 2024-09-09 12:57 | Outpatient (AMB) | payer BC, SELFPAY ==
[2024-09-09 13:03] VITALS: BP 104/70; PULSE 80; O2SAT 99; BMI 31.6
--- NOTE | 2024-09-09 13:03 | MHC.PC.OV ---
Vital Signs 09/09/24 13:03 Height 5 ft Weight 162 lb BMI 31.6 BP 104/70 Blood Pressure Location Lt brachial Position Sitting Pulse 80 Pulse Source Pulse Oximeter Pulse Oximetry (%) 99 Oxygen Delivery Method Room Air Intake Visit Reasons: Depression/Anxiety? Student Services Representative Required: No Accompanied by: Self / Same As Patient Allergies No Known Allergies [No Known Allergies*] Allergy (Verified 09/09/24 13:11) Tobacco use date assessed: 04/14/24 Dental Screening Dental Screen Date: 04/14/24 HPI Depression/Anxiety? HPI Details 33-year-old obese female with a history of major depression and hypercholesterolemia coming in for follow-up. Last seen in 04/11/2024.had panic attacts also , palpitations , numb and diaphoretic- called therapist- [place]. [facility] Medical History (Updated 09/09/24 @ 13:43 by Adarsh Jarvis MD) 30 weeks gestation of Concussion URI (upper respiratory infection) Hypercholesterolemia Strep throat Abdominal pain No pertinent past medical history Surgical History Previous section History of cyst of breast Family History Mother Cervical cancer Father No problems noted. 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 manager medicare to a significant other at home: Yes (grandparents) Do you presently have visiting nurse or other home services: No Alcohol intake: never Patient Tobacco Use Status: Never used Tobacco e-Cigarette/Vaping Use: Never Used Second Hand Smoke Exposure: No service: No Current occupational status: employed Current occupational exposures/hazards: No Cognitive needs: No Hearing needs: No Vision needs: Yes Questionnaire PHQ-9 Over the last 2 weeks, how often have you been bothered by any of the following problems? 1. Little interest or pleasure in doing things: several days 2. Feeling down, depressed, or hopeless: more than half the days 3. Trouble falling or staying asleep, or sleeping too much: more than half the days 4. Feeling tired or having little energy: several days 5. Poor appetite or overeating: more than half the days 6. Feeling bad about yourself - or that you are a failure or have let yourself or your family down: more than half the days 7. Trouble concentrating on things, such as reading the newspaper or watching television: several days 8. Moving or speaking so slowly that other people could have noticed. Or the opposite - being so fidgety or restless that you have been moving around a lot more than usual: several days 9. Thoughts that you would be better off or of hurting yourself in some way: several days Total score: 13 57166 - PHQ-9 Billing: Yes Source: Developed by Drs. Jose Ramon Maharaj, Ciara Putnam, Louis Monsivais and colleagues, with an educational marcus from [employer]. Thrive Questionnaire Date Thrive assessed: 09/09/24 I am a: Parent/Caregiver What is your living situation today?: I have a steady place to live Within the past 12 months, did the food you bought not last and you didn't have the money to get more?: Never true Within the past 12 months, did you worry whether your food would run out before you got money to buy more?: Never true Do you have trouble paying for medicines?: No Do you have trouble getting transportation to medical appointments?: No Do you have trouble paying your heating and electricity bill?: No Do you have trouble taking care of your child, family member or friend?: No Do you have trouble with day-to-day activities such as bathing, preparing meals, shopping, managing finances, etc.?: No Are you currently unemployed and looking for a job?: No Are you interested in more education?: No Please select the resources that you would like help with: None Currently or been in a relationship where the following occur: No concerns reported THRIVE Score: 0 AUDIT C Alcohol Use Questionnaire (AUDIT-C) 1. How often do you have a drink containing alcohol?: Never 3. How often do you have six or more drinks on one occasion?: Never Total Score: 0 EBONY-7 AMB Questionnaire EBONY-7 Date EBONY - 7 assessed: 09/09/24 Feeling nervous, anxious, or on edge: 2 = More than half the days Not being able to stop or control worryin = Nearly every day Worrying too much about different things: 3 = Nearly every day Trouble relaxin = Nearly every day Being so restless that it is hard to sit still: 2 = More than half the days Becoming easily annoyed or irritable: 3 = Nearly every day Feeling afraid as if something awful might happen: 1 = Several days Total EBONY-7 score (0-4 normal; 5-9 mild; 10-14 moderate; 15-21 severe): 17 Source: Developed by Drs. Jose Ramon Maharaj, Ciara Putnam, Louis Monsivais and colleagues, with an educational marcus from [employer]. EBONY-7 Assessment Billing EBONY-7 Assessment Tool: EBONY-7 Assessment 62829 Physical exam (Primary Care) Vital Signs: Last Vital Signs Pulse 80 09/09/24 13:03 BP 104/70 09/09/24 13:03 Pulse Ox 99 09/09/24 13:03 Oxygen Delivery Method Room Air 09/09/24 13:03 BMI result Body Mass Index 31.6 Tobacco/Smoking Status: Tobacco use Status Tobacco use date assessed 04/14/24 09/09/24 13:12 Patient Tobacco Use Status Never used Tobacco 09/09/24 13:12 e-Cigarette/Vaping Use Never Used 09/09/24 13:12 PHQ-9: PHQ-9 Score PHQ-9: Total score 13 09/09/24 13:12 Thrive Assessment: Date of Thrive Assessment Date Thrive assessed 09/09/24 09/09/24 13:12 Currently or been in a relationship where the following occur: No concerns reported Const General: alert; No acute distress Eyes Conjunctivae: conjunctivae normal Resp Auscultation: clear to auscultation bilaterally Cardio Rate: regular rate Rhythm: regular rhythm GI Inspection: Yes normal to inspection Extrem General: Yes normal to inspection and No edema Coding Level of Care Code Est Pt Level 4 (52692) Diagnoses Obesity (BMI 30-39.9) E66.9 Panic attack F41.0 Mild episode of recurrent major depressive disorder F33.0 Major depression recurrence: recurrent Active/Remission status: currently active Major depression episode severity: mild Additional Codes EBONY-7 Assessment Billing - EBONY-7 Assessment Tool: EBONY-7 Assessment 64125 ([id number]) Assessment & Plan Assessment & Plan (1) Obesity (BMI 30-39.9): Code(s): E66.9 - Obesity, unspecified Category: Medical Plan: diet and exercise (2) Panic attack: Code(s): F41.0 - Panic disorder [episodic paroxysmal anxiety] Category: Medical Plan: prescription for the med prn (3) Major depression: Code(s): F32.9 - Major depressive disorder, single episode, unspecified Category: Medical Qualifiers: Major depression recurrence: recurrent Active/Remission status: currently active Major depression episode severity: mild Qualified Code(s): F33.0 - Major depressive disorder, recurrent, mild Plan: continue with counselling and therapy Medications: New alprazolam 0.25 mg PO BEDTIME PRN 20 tabs 0RF sleep F41.0 - Panic disorder [episodic paroxysmal anxiety]
== END 2024-09-09 13:52 | disposition home or self-care (01) ==
PROVIDERS: PCP Internal Medicine; Visit Provider Internal Medicine
DX: F33.0 Major depressive disorder, recurrent, mild (principal); E66.811 Obesity, class 1; Z68.30 Body mass index [BMI] 30.0-30.9, adult; F41.0 Panic disorder [episodic paroxysmal anxiety]

== ENCOUNTER → 2024-09-09 12:57 | Outpatient (BNVA) | payer BC, SELFPAY | PROVIDERS: PCP Internal Medicine; Visit Provider Internal Medicine | DX: E66.9 Obesity, unspecified (principal); Z68.31 Body mass index [BMI] 31.0-31.9, adult; F41.0 Panic disorder [episodic paroxysmal anxiety]; F33.0 Major depressive disorder, recurrent, mild | CPT/HCPCS: 96127 ==

== ENCOUNTER 2024-10-24 11:35 | Outpatient (AMB) | payer BC, SELFPAY ==
--- NOTE | 2024-10-24 12:04 | A.OFFPC_ITS ---
Vital Signs 10/24/24 12:06 Height 5 ft Weight 162 lb BMI 31.6 BP 112/80 Blood Pressure Location Lt brachial Position Sitting Pulse 81 Pulse Source Pulse Oximeter Pulse Oximetry (%) 98 Oxygen Delivery Method Room Air Intake Visit Reasons: Annual PE Intake Note: Patient here for an annual physical exam Home Sales Consultant Required: No Accompanied by: Self / Same As Patient Allergies No Known Allergies [No Known Allergies*] Allergy (Verified 10/24/24 12:13) Medication List - Last Reconciled 10/24/24 by Adarsh Jarvis MD ibuprofen 600 mg PO Q8H PRN Tobacco use date assessed: 04/14/24 Dental Screening Dental Screen Date: 10/24/24 Did you have a dental visit in the last 12 months?: Yes Did you have a dental problem in the last 6 months where you did not have access to dental care?: No Was dental information given to patient?: Patient has dentist HPI Annual PE HPI Details 33-year-old obese female with a history of major depression coming in for physical exam last seen in August 2024. Patient takes care of her parents who are very ill. FORMERLY [facility], [facility] Medical History (Updated 10/24/24 @ 12:21 by Adarsh Jarvis MD) 30 weeks gestation of Concussion URI (upper respiratory infection) Hypercholesterolemia Strep throat Abdominal pain No pertinent past medical history Surgical History Previous section History of cyst of breast Family History Mother Cervical cancer Father No problems noted. Paternal Grandfather Hypertension Paternal Grandmother Diabetes Maternal Grandfather Myocardial infarct Social History (Updated 10/24/24 @ 12:19 by Adarsh Jarvis MD) Household Members: Spouse and Children Housing: House Are you a primary childcare provider to a significant other at home: Yes (grandparents) Do you presently have visiting nurse or other home services: No Alcohol intake: current Comment: once a month 1-2 glass Patient Tobacco Use Status: Never used Tobacco e-Cigarette/Vaping Use: Never Used Second Hand Smoke Exposure: No service: No Current occupational status: employed Current occupational exposures/hazards: No Cognitive needs: No Hearing needs: No Vision needs: Yes Questionnaire PHQ-9 Over the last 2 weeks, how often have you been bothered by any of the following problems? 1. Little interest or pleasure in doing things: several days 2. Feeling down, depressed, or hopeless: several days 3. Trouble falling or staying asleep, or sleeping too much: several days 4. Feeling tired or having little energy: several days 5. Poor appetite or overeating: several days 6. Feeling bad about yourself - or that you are a failure or have let yourself or your family down: several days 7. Trouble concentrating on things, such as reading the newspaper or watching television: several days 8. Moving or speaking so slowly that other people could have noticed. Or the opposite - being so fidgety or restless that you have been moving around a lot more than usual: not at all 9. Thoughts that you would be better off or of hurting yourself in some way: not at all Total score: 7 Source: Developed by Drs. Jose Ramon Maharaj, Ciara Putnam, Louis Monsivais and colleagues, with an educational marcus from [employer]. Thrive Questionnaire Date Thrive assessed: 09/09/24 I am a: Patient What is your living situation today?: I have a steady place to live Within the past 12 months, did the food you bought not last and you didn't have the money to get more?: I choose not to answer this question Within the past 12 months, did you worry whether your food would run out before you got money to buy more?: I choose not to answer this question Do you have trouble paying for medicines?: I choose not to answer this question Do you have trouble getting transportation to medical appointments?: No Do you have trouble paying your heating and electricity bill?: I choose not to answer this question Do you have trouble taking care of your child, family member or friend?: I choose not to answer this question Do you have trouble with day-to-day activities such as bathing, preparing meals, shopping, managing finances, etc.?: I choose not to answer this question Are you interested in more education?: I choose not to answer this question Please select the resources that you would like help with: None Currently or been in a relationship where the following occur: No concerns reported THRIVE Score: 0 AUDIT C Alcohol Use Questionnaire (AUDIT-C) 1. How often do you have a drink containing alcohol?: Never Total Score: 0 EBONY-7 AMB Questionnaire EBONY-7 Date EBONY - 7 assessed: 09/09/24 Feeling nervous, anxious, or on edge: 0 = Not at all Not being able to stop or control worryin = Several days Worrying too much about different things: 1 = Several days Trouble relaxin = Several days Being so restless that it is hard to sit still: 1 = Several days Becoming easily annoyed or irritable: 1 = Several days Feeling afraid as if something awful might happen: 0 = Not at all Total EBONY-7 score (0-4 normal; 5-9 mild; 10-14 moderate; 15-21 severe): 5 Source: Developed by Drs. Jose Ramon Maharaj, Ciara Putnam, Louis Monsivais and colleagues, with an educational marcus from [employer]. Review of Systems Const Denies poor appetite and Denies weakness Eyes Denies no additional complaints ENT Reports Normal hearing present, Denies dizziness, Denies nasal congestion, Denies tinnitus and Denies sore throat Card Denies chest pain, Denies syncope, Denies rapid heart rate and Denies dyspnea Resp Denies cough and Denies dyspnea GI Denies change in stool character, Reports constipation, Denies diarrhea, Denies nausea and Denies vomiting Denies urinary frequency, Denies difficulty voiding and Denies dysuria Neuro Reports Normal hearing present, Denies confusion, Denies dizziness, Denies syncope and Denies weakness Psych Denies confusion Physical exam (Primary Care) Vital Signs: Last Vital Signs Pulse 81 10/24/24 12:06 BP 112/80 10/24/24 12:06 Pulse Ox 98 10/24/24 12:06 Oxygen Delivery Method Room Air 10/24/24 12:06 BMI result Body Mass Index 31.6 Tobacco/Smoking Status: Tobacco use Status Tobacco use date assessed 04/14/24 10/24/24 12:15 Patient Tobacco Use Status Never used Tobacco 10/24/24 12:15 e-Cigarette/Vaping Use Never Used 10/24/24 12:15 PHQ-9: PHQ-9 Score PHQ-9: Total score 7 10/24/24 12:15 Thrive Assessment: Date of Thrive Assessment Date Thrive assessed 09/09/24 10/24/24 12:15 Currently or been in a relationship where the following occur: No concerns reported Const General: No confusion Orientation/consciousness: No confusion HENMT Head: Yes normocephalic Ears: external ears normal and TM's normal bilaterally Face and sinus: Yes normal facial exam Mouth: moist mucous membranes Throat: Yes tonsils normal Eyes Conjunctivae: conjunctivae normal Pupils: Equal, round and reactive pupils present and Pupil accommodation reflex normal Direct Ophthalmoscopy: normal light reflex Neck Neck: No lymphadenopathy Thyroid: Thyroid normal Chest Chest palpation & inspection: normal inspection of the chest Resp Effort & Inspection: normal respiratory effort and no audible wheezes Auscultation: clear to auscultation bilaterally, no crackles, no wheezes and lung sounds not diminished Cardio Rate: regular rate Rhythm: regular rhythm Peripheral pulses: radial pulses present and dorsalis pedis present GI Palpation (GI): no masses Auscultation: normal bowel sounds and normoactive bowel sounds Rectal Exam - Female: deferred Skin General skin exam: no rashes or lesions noted Rashes: no rashes Neuro General: No confusion Cranial nerves: Yes Equal, round and reactive pupils present and Yes Normal hearing present Cognition (Neuro): normal cognition Gait exam (Neuro): Normal gait present Motor exam (neuro): 5/5 motor strength present throughout Deep tendon reflexes (DTR's): Right brachioradialis reflex intensity grade: 2+, Left brachioradialis reflex intensity grade: 2+, Right patellar reflex intensity grade: 2+ and Left patellar reflex intensity grade: 2+ Extrem General: No edema Coding Level of Care Code Est Pt Prev Care 18-39y(48032) Diagnoses Annual physical exam Z00.00 Obesity (BMI 30-39.9) E66.9 Mild episode of recurrent major depressive disorder F33.0 Major depression recurrence: recurrent Active/Remission status: currently active Major depression episode severity: mild Panic attack F41.0 Assessment & Plan Assessment & Plan (1) Annual physical exam: Code(s): Z00.00 - Encounter for general adult medical examination without abnormal findings Category: Medical Plan: Patient is advised to eat healthy, keep well hydrated, keep active and have adequate sleep. (2) Obesity (BMI 30-39.9): Code(s): E66.9 - Obesity, unspecified Category: Medical Plan: Diet and exercise (3) Major depression: Code(s): F32.9 - Major depressive disorder, single episode, unspecified Category: Medical Qualifiers: Major depression recurrence: recurrent Active/Remission status: cur rently active Major depression episode severity: mild Qualified Code(s): F33.0 - Major depressive disorder, recurrent, mild Plan: Discussed about counseling and therapy (4) Panic attack: Comment: counselling once a week Code(s): F41.0 - Panic disorder [episodic paroxysmal anxiety] Category: Medical Plan: continue with counselling and will refer for outpatient psychiatric care Orders: Orders Complete Blood Count Auto Diff Today E66.9 - Obesity, unspecified Vitamin B12 and Folate Today E66.9 - Obesity, unspecified Vitamin D 25-OH Total Today E66.9 - Obesity, unspecified Comprehensive Met. Panel Today E66.9 - Obesity, unspecified Free T4 (Free Thyroxine) Today E66.9 - Obesity, unspecified Thyroid Stimulating Hormone Today E66.9 - Obesity, unspecified Lipid Panel Today E66.9 - Obesity, unspecified, E78.00 - Pure hypercholesterolemia, unspecified Referrals Psychiatry Outpatient Consultation Service F33.0 - Major depressive disorder, recurrent, mild, F41.0 - Panic disorder [episodic paroxysmal anxiety]
[2024-10-24 12:06] VITALS: BP 112/80; PULSE 81; O2SAT 98; BMI 31.6
== END 2024-10-24 12:33 | disposition home or self-care (01) ==
PROVIDERS: PCP Internal Medicine; Visit Provider Internal Medicine
DX: Z00.00 Encounter for general adult medical examination without abnormal findings (principal); F33.0 Major depressive disorder, recurrent, mild; E66.9 Obesity, unspecified; Z68.31 Body mass index [BMI] 31.0-31.9, adult; F41.0 Panic disorder [episodic paroxysmal anxiety]

== ENCOUNTER → 2024-10-24 11:35 | Outpatient (BNVA) | payer BC, SELFPAY | PROVIDERS: PCP Internal Medicine; Visit Provider Internal Medicine ==

== ENCOUNTER 2024-12-27 08:22 | Outpatient (REF) | payer BC, SELFPAY ==
[2024-12-27 08:36] LABS: MANUAL DIFF FLAG NO
--- OUTSIDE RECORDS SUMMARY | 2024-12-27 08:37 | XMS_ITS | Encounter Summary ---
[facility] [address] [place] [address] Care Team Providers Care Auto Garage Attendant Name Role Phone Physician, No Pcp Primary Care Provider Unavaila ble Encounter Details Date Type Department Care Team ([facility] st Contact Info) Description 10/27/2024 Telephone Obstetrics and Gynecology - [place] [address] [place] [address] Anjali Carson, [facility] [address] [place] [address] Social History Tobacco Use Types Packs/Day Years Used Date Smoking Tobacco: Never Smokeless Tobacco: Never Alcohol Use Standard Drinks/Week Comments Yes 0 (1 standard drink = 0.6 oz pur e alcohol) Sex and Gender Information Value Date Recorded Sex Assigned at Not on file Gender Identity Not on file Sexual Orientation Not on file Job Start Date Occupation Industry Not on file Not on file Not on file documented as of this encounter Progress Notes * Yesenia Sorenson - 10/27/2024 11:31 AM EST Was advised that we spoke with Anjali Carson who advised her that she can not be worked into the schedule today for her annual . She is aware she can reschedule to her next available or be seen by another provider. She disagrees wants to speak with Anjali Carson personally. I also sent her to patient services as she requested to speak with a training manager . * Maia De - 10/27/2024 9:32 AM EST Pt was cancelled this morning as provider was unavailable. Needs an annual by the end of the month for insurance issues. Was able to offer several appointments but none in [place]. Wants to ask [facility] fit her in today. Advised we would check when she arrives at the office. Only feels comfortable seeing her. * Dianna Prescott RN - 10/27/2024 9:21 AM EST VM left with call back number to reschedule Annual appt to 11/21/24 with JOSE RAUL Javier at the [facility] office. Please schedule is she calls back * Valerie Santos - 10/27/2024 8:53 AM EST Pt received a call this am that her annual with Anjali needs to be cancelled for today - she needs her annual before the end of this month due to her insurance - please call to advise documented in this encounter Plan of Treatment Not on file documented as of this encounter Visit Diagnoses Not on filedocumented in this encounter Care Teams Auto Garage Attendant Relationship Specialty Start Date End Date Physician, No Pcp PCP - General 10/28/24 documented as of this encounter
--- OUTSIDE RECORDS SUMMARY | 2024-12-27 08:37 | XMS_ITS | Clinical Summary ---
Author Organization [facility] [address] [facility] Address [address] [place] [phone] Phone Care Team Providers Care Ice Cream Man Name Role Phone Physician, No Pcp Primary Care Provider Unavaila ble Allergies No known active allergies Medications Medication Sig Dispensed Refills Start Date End Date Status ibuprofen (ADVIL,MOTRIN) 600 mg tabletIndications:M enorrhagia with regular cycle Take 1 tablet (600 mg total) by mouth every 6 (six) hours if needed for moderate pain (and heavy menses). 90 tablet 1 11/01/2024 11/01/2025 Active Active Problems Problem Noted Date Diagnosed Date Acute myofascial pain 01/05/2024 Overview (09/12/2024): Last Assessment & Plan: Explained that it is unclear the cause, but likely some kind of movement, but that her presentation is consistent with nerve pain related to myofascial pain syndrone at her incision site. I recommended trigger point injection, followed by stretching and heat at home. She agreed. Consent signed. She was counseled her pain could return, but many women need only one injection. Pt was consented for myofascial trigger point injection. She was placed in the supine position. The area was identified with one finger in three locations across the incision scar. The skin was cleansed with alcohol. A spinal needle was inserted and advanced to the level of the fascia. A total of 10 cc of 0.25% Marcaine was injected in the three reas of most discomfort. Immediate improvement was noted. The needle was removed and a bandaid was applied. The patient tolerated the procedure well. She had no remaining pain following her injections. She was very happy. 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 Repeat ultrasound demonstrated improvement. They will see her back in April for PP planning. MFM appointment scheduled 04/22- they called and cancelled given it was superficial and not planning on staying on terminal make up operator therapeutic anticoagulation. Last Assessment & Plan: No need to transfer to [facility] due to stopping therapuetic anticoagulation and only superficail vein thrombosis. Patient will continue appts here Edema during , second trimester 022 Overview (09/12/2024): 02/18/2022- LE edema to left leg, per pt report went to [facility] and DVT was ruled out. Doppler not available for review. LE edema resolved with elevation of feet Obesity in 11/19/2021 Overview (09/12/2024): BMI- 30.2 HgbA1C at initial labs One hour GTT in first trimester Repeat GTT 24-28 weeks if early is normal Level 2 Survey (at [facility] for BMI >40) Refer to nutrition for BMI >40 Growth US at 32 and 36 weeks for for BMI >40 Weekly NST at 32 weeks for BMI >45 Screen for ALESSANDRO (using tool) and refer for sleep study if positive Anesthesia consult for pre- BMI >45 or >50 lb weight gain Transfer to [facility] for pre- BMI >50 DVT prophylaxis- Lovenox if CS and BMI >35 Migraine headache 01/14/2021 Abnormal Pap smear of cervix 03/25/2018 Encounters Date Type Department Care Team Description 11/01/2024 9:30 AM EST Office Visit Obstetrics and Gynecology - [address] [phone] Carson, Anjali L, CNM Encounter for gynecological examination without abnormal finding (Primary Dx); Screen for STD (sexually transmitted disease); Menorrhagia with regular cycle 10/27/2024 Telephone Obstetrics and Gynecology [address] [phone] Anjali Carson, JOSE RAUL from Last 3 Months Immunizations Name Administration Dates Next Due DTaP (Infanrix) 6wks to less than 7yo ,10/14/1993,06/24/1993,1992 NCxG-QRF-KRD (Pentacel) 2mo to less than 5yo 02/06/1994,10/14/1993,06/24/1993,1992 HPV, Quadrivalent 12/16/2007,08/04/2007,03/30/20 07 Hepatitis B (Gxdziov-I-Ttdka , Recombivax HB-Adult) 19yo and older 09/24/2016,02/27/2016,01/24/2016,1995,01/29/1996,01/01/1996 IPV Inactivated polio (Ipol) 6wks and older 01/08/1995,10/14/1993,06/24/1993,1992 Influenza Quadravalent, MDCK , 0.5ml, preservative free (Flucelvax) 6mo and older 10/01/2020,08/16/2018 Influenza, Unspecified 01/22/2016 MMR, measles mumps and rubel la Live (Priorix; M-M-R II) 12mo and older 02/06/1994,01/22/1993 Measles 01/22/2016 Mumps 01/22/2016 PPD Test 01/22/2016 Rubella 01/22/2016 Td Tetanus diptheria (Tdvax) 7yo and older 05/23/2003 Tdap Tetanus diptheria acell ular pertussis (Boostrix; Adacel) 7yo and older 03/18/2022,08/02/2018,08/15/2014 Surgical History Surgery Date Site/Laterality Comments BREAST LUMPECTOMY 11/23/2009 PROCEDURE: ---- BREAST LUMP BIOPSY ----; COMMENT: R breast, cyst WISDOM TOOTH EXTRACTION PROCEDURE: HISTORICAL WISDOM TEETH EXTRACTION; COMMENT: at 19yrs old; all 4 removed Medical History Medical History Date Comments Complicated UTI (urinary tra ct infection) 08/11/2019 DX:Complicated UTI (urinary tract infection); COMMENT: Hospitalized 10/2018 Migraine headache without aura D X:Migraine headache without aura; COMMENT: Placed on Imitrex, switched to Progestin only pill Vitamin D deficiency 09/2021 DX:Vitamin D deficiency; COMMENT: placed on vitamin D gummie takes 1 gummie per day Family History Medical History Relation Name Comments Bladder Cancer Aunt maternal side No Known Problems Daughter Avah No Known Problems Father Heart attack Maternal Grandfather Dementia Maternal Grandmother Cervical cancer Mother , un sure if also ovarian cancer Diabetes Paternal Grandfather Heart failure Paternal Grandfather Hyperlipidemia Paternal Grandfather Hypertension Paternal Grandfather Other: Other Paternal Grandfather heart i ssues Arthritis Paternal Grandmother Mother Diabetes Paternal Grandmother Mother Breast cancer Neg Hx Uterine cancer Neg Hx Relation Name Status Comments Aunt maternal side Alive Daughter Avah Alive Father Alive Maternal Grandfather Maternal Grandmother Alive Mother (Age 24) Cervical c ancer Paternal Grandfather Alive Paternal Grandmother Mother Alive Social History Tobacco Use Types Packs/Day Years [...] file Not on file Not on file Obstetrics History Para Term AB IAB SAB Ectopic Multiple Livin g Live Births 4 2 2 2 2 2 2 Date Outcome GA Total Labor Labor/2nd/3rd Weight Sex Type Anes PTL Mylene A1 A5 Name Clin 2011 SAB 2012 SAB 2017 Term 40w 3d 3289 g (116 oz) F Vag-S pont Epidur al Livin g 8 9 [place] [facility] Delivery Location:[facility] 2021 Term 39w 3d F CS-Un spec Livin g Delivery Location:[facility] Last Filed Vital Signs Vital Sign Reading Time Taken Comments Blood Pressure 114/68 11/01/2024 9:37 AM EST Pulse 86 11/01/2024 9:37 AM EST Temperature - - Respiratory Rate - - Oxygen Saturation - - Inhaled Oxygen Concentration - - Weight 73 kg (161 lb) 11/01/2024 9:37 AM EST Height 152.4 cm (5') 10/02/2023 11:22 AM EST Body Mass Index 31.44 10/02/2023 11:22 AM EST Plan of Treatment Health Maintenance Due Date Last Done Comments Depression Screening 10/26/2022 Social Influencers of Health Screening 10/26/2022 COVID-19 Vaccine ( season) 2024 08/23/2021, 08/02/2021 Cervical Cancer Screening: HPV 09/02/2026 09/02/2021 Cholesterol Screening (Lipid Panel) 10/09/2026 10/09/2021 DTaP,Tdap,and Td Vaccines (9 - Td or Tdap) 03/18/2032 03/18/2022, 08/02/2018, 08/15/2014, Additional history exists HIB Vaccines Completed 02/06/1994, 09/24, 06/24/1993, Additional history exists MMR Vaccines Completed 02/06/1994, 01/22/1993 IPV Vaccines Completed 01/08/1995, 01/21, 10/14/1993, Additional history exists HPV Vaccines Completed 12/16/2007, 07/24, 03/30/2007 Hepatitis B Vaccines Completed 09/24/2016, 02/27/2016, 01/24/2016, Additional history exists HIV Screening Completed 11/04/2021 Hepatitis C Screening Completed 11/04/2021 Influenza Vaccine Completed 08/23/2024, , 10/13/2022, Additional history exists Hepatitis A Vaccines Aged Out No long er eligible based on patient's age to complete this topic Meningococcal ACWY Vaccine Aged Out N o longer eligible based on patient's age to complete this topic Pneumococcal Vaccine: Pediatrics (0 to 5 Years) and At-Risk Patients (6 to 64 Years) Aged Out No longer eligible based on patient's age to complete this topic RSV Immunization Patients Under 20 months Aged Out No longer eligible based on patient's age to complete this topic Varicella Vaccines Aged Out No longer eligible based on patient's age to complete this topic Procedures Procedure Name Priority Date/Time Associated Diagnosis Comments CHLAMYDIA TRACHOMATIS AND NEISSERIA GONORRHOEAE PCR Routine 11/01/2024 10:08 AM EST Screen for STD (sexually transmitted disease) HEPATITIS C SCREENING Routine 11/04/2021 HIV SCREENING Routine 11/04/2021 LIPID PANEL Routine 10/09/2021 HPV Routine 09/02/2021 from Last 3 Months or Most Recently Relevant to Health Maintenance Results * Chlamydia trachomatis and Neisseria gonorrhoeae molecular study (11/01/2024 10:08 AM EST) Pathologist [facility] Neisseria gonorrhoeae PCR Negative Negative LAB MOLECULAR DIAGNOSTICS METHOD 11/02/2024 10:[address] [facility] Chlamydia trachomatis PCR Negative Negative LAB MOLECULAR DIAGNOSTICS METHOD 11/02/2024 10:[address] [facility] Swab Cervix uteri structure / Unknown Non-blood Collection / Unknown 11/01/2024 10:08 AM EST 11/01/2024 10:08 AM EST Anjali Carson [facility] MICROBIOLOGY - G ENERAL ORDERABLES [facility] [address] [place] [address], * HIV Screening (11/04/2021) Pathologist [facility] HIV Screening abstracted Historical Provider MD ENID HERRON E * Hepatitis C Screening (11/04/2021) Pathologist [facility] Hepatitis C Screening abstracted Historical Provider MD ENID HERRON E * (ABNORMAL) Lipid panel (10/09/2021) Pathologist [facility] LDL/HDL Ratio 4 0 - 4 Triglycerides 139 0 - 150 mg/dL Cholesterol 188 0 - 200 mg/dL HDL 49 40 mg/dL LDL Cholesterol 112(A) 0 - 100 mg/dL Blood Venous blood specimen / Unknown Historical Provider LAB BLOOD ORDERAB LES * Cervical Cancer Screening: HPV (09/02/2021) Pathologist [facility] Cervical Cancer Screening: HPV negative,a bstracted Historical Provider [facility] from Last 3 Months or Most Recently Relevant to Health Maintenance Care Teams Ice Cream Man Relationship Specialty Start Date End Date Physician, No Pcp PCP - General 10/28/24
[2024-12-27 09:10] LABS: Basophils Percent Auto 0.5 % (0-2); Eosinophils Absolute Auto 0.1 X10*3/uL (0.0-0.4); Eosinophils Percent Auto 2.3 % (0-4); Hematocrit 37.7 % (37.0-47.0); Hemoglobin 12.8 g/dl (12.0-16.0); Imm Gran Abs Auto 0.01 X10*3/uL (0.00-0.03); Imm Gran Pct Auto 0.2 % (0.0-0.4); Lymphocytes Percent Auto 33.2 % (20-40); Mean Corpuscular Hemoglobin 31.8 pg (27.0-33.0); Mean Corpuscular Volume 93.5 fL (80.0-98.0); Mean Platelet Volume 10.3 fL (9.4-12.3); Monocytes Absolute Auto 0.5 X10*3/uL (0.1-1.2); Monocytes Percent Auto 8.1 % (2-11); Neutrophils Absolute Auto 3.4 x10*3/uL (2.0-8.3); Neutrophils Percent Auto 55.7 % (45-73); Platelet Count 229 X10*3/uL (160-400); Red Blood Count 4.03 X10*6/uL (4.20-5.50); Red Cell Distribution Width 12.1 % (11.0-16.0); White Blood Count 6.1 X10*3/uL (4.8-10.8)
[2024-12-27 09:54] LABS: Alanine Aminotransferase 21 U/L (0-31); Albumin Level 4.2 g/dL (3.5-5.0); Alkaline Phosphatase 72 U/L (39-117); Anion Gap 16 (12-20); Aspartate Amino Transferase 26 U/L (5-31); Bilirubin Total 0.6 mg/dL (0.0-1.0); Blood Urea Nitrogen 14 mg/dL (9-16); Calcium 8.9 mg/dL (8.4-10.2); Carbon Dioxide 26 mmol/L (22-29); Chloride 105 mmol/L (96-108); Cholesterol 195 mg/dL (<200); Estimated Glomerular Filt Rate > 60; Glucose Random 90 mg/dL (60-115); HDL Cholesterol 39 mg/dL (>40); LDL Cholesterol Calculated 134 mg/dL (<100); Potassium 4.4 mmol/L (3.3-5.1); Sodium 143 mmol/L (135-145); Total Protein 7.8 g/dL (6.5-8.0); Triglycerides 113 mg/dL (<150)
[2024-12-27 10:15] LABS: Free T4 (Free Thyroxine) 0.91 ng/dL (0.71-1.85); Thyroid Stimulating Hormone 1.22 uIU/mL (0.32-4.0); Vitamin D 25-OH Total 23.5 ng/mL (>30)
[2024-12-27 10:20] LABS: Folate 7.3 ng/mL (> or = 4.0); Vitamin B12 501 pg/mL (200-900)
== END 2024-12-27 08:23 | disposition home or self-care (01) ==
LOC: HO.LAB 08:22
PROVIDERS: PCP Internal Medicine; Visit Provider Internal Medicine
DX: E66.9 Obesity, unspecified (principal); E78.00 Pure hypercholesterolemia, unspecified
CPT/HCPCS: 36415; 80053; 80061; 82306; 82607; 82746; 84439; 84443; 85025

== ENCOUNTER 2024-12-29 11:52 | Outpatient (AMB) | payer BC, SELFPAY ==
--- OUTSIDE RECORDS SUMMARY | 2024-12-29 11:56 | XMS_ITS | Clinical Summary ---
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 Repeat ultrasound demonstrated improvement. They will see her back in April for PP planning. 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 Last Assessment & Plan: No need to transfer to [facility] due to stopping therapuetic anticoagulation and only superficail vein thrombosis. Patient will continue appts here Edema during , second trimester 022 Overview (09/12/2024): 02/18/2022- LE edema to left leg, per pt report [place] [facility] [place] DVT was ruled out. Doppler not available for review. LE edema resolved with elevation of feet Obesity in 11/19/2021 Overview (09/12/2024): BMI- 30.2 HgbA1C at initial labs One hour GTT in first trimester Repeat GTT 24-28 weeks if early is normal Level 2 Survey (at [facility] for BMI >40) Refer to nutrition for BMI >40 Growth US at 32 and 36 weeks for for BMI >40 Weekly NST at 32 weeks for BMI >45 Screen for ALESSANDRO (using tool) and refer for sleep study if positive Anesthesia consult for pre- BMI >45 or >50 lb weight gain Transfer to [facility] for pre- BMI >50 DVT prophylaxis- Lovenox if CS and BMI >35 Migraine headache 01/14/2021 Abnormal Pap smear of cervix 03/25/2018 Encounters Date Type Department Care Team Description 11/01/2024 9:30 AM EST Office Visit Obstetrics and Gynecology - [address] [phone] Carson, Anjali L, CNM Encounter for gynecological examination without abnormal finding (Primary Dx); Screen for STD (sexually transmitted disease); Menorrhagia with regular cycle 10/27/2024 Telephone Obstetrics and Gynecology [address] [phone] Anjali Carson, JOSE RAUL from Last 3 Months Immunizations Name Administration Dates Next Due DTaP (Infanrix) 6wks to less than 7yo ,10/14/1993,06/24/1993,1992 [id number]-[id number]-HTP (Pentacel) 2mo to less than 5yo 02/06/1994,10/14/1993,06/24/1993,1992 HPV, Quadrivalent 12/16/2007,08/04/2007,03/30/20 07 Hepatitis B (Mrwvxsy-W-Dlbqk , Recombivax HB-Adult) 19yo and older 09/24/2016,02/27/2016,01/24/2016,1995,01/29/1996,01/01/1996 [...] pont Epidur al Livin g 8 9 [place] [facility] Delivery Location:[facility] 2021 Term 39w 3d F CS-Un spec Livin g Delivery Location:[facility] Last Filed Vital Signs Vital Sign Reading [...] molecular study (11/01/2024 10:08 AM EST) Pathologist [facility] Neisseria gonorrhoeae PCR Negative Negative LAB MOLECULAR DIAGNOSTICS METHOD 11/02/2024 10:25 AM EST [facility] Chlamydia trachomatis PCR Negative Negative LAB MOLECULAR DIAGNOSTICS METHOD 11/02/2024 10:25 AM EST [facility] Swab Cervix uteri structure / Unknown Non-blood Collection / Unknown 11/01/2024 10:08 AM EST 11/01/2024 10:08 AM EST Anjali Carson [facility] LAB MICROBIOLOGY - G ENERAL ORDERABLES [facility] [address] [place] [address], * HIV Screening (11/04/2021) Pathologist [facility] HIV Screening abstracted Historical Provider MD ENID HERRON E * Hepatitis C Screening (11/04/2021) Pathologist [facility] Hepatitis C Screening abstracted Historical Provider MD ENID HERRON E * (ABNORMAL) Lipid panel (10/09/2021) Pathologist [facility] LDL/HDL Ratio 4 0 - 4 Triglycerides 139 0 - 150 mg/dL Cholesterol 188 0 - 200 mg/dL HDL 49 40 mg/dL LDL Cholesterol 112(A) 0 - 100 mg/dL Blood Venous blood specimen / Unknown Historical Provider LAB BLOOD ORDERAB LES * Cervical Cancer Screening: HPV (09/02/2021) Pathologist [facility] Cervical Cancer Screening: HPV negative,a bstracted Historical Provider [facility] from Last 3 Months or Most Recently Relevant to Health Maintenance 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
[2024-12-29 11:59] VITALS: BP 114/72; PULSE 79; O2SAT 98; BMI 31.6
--- NOTE | 2024-12-29 11:59 | A.OFFPC_ITS ---
Vital Signs 12/29/24 11:59 Height 5 ft Weight 162 lb BMI 31.6 BP 114/72 Blood Pressure Location Lt brachial Position Sitting Pulse 79 Pulse Source Pulse Oximeter Pulse Oximetry (%) 98 Oxygen Delivery Method Room Air Intake Visit Reasons: EBONY Allergies No Known Allergies [No Known Allergies*] Allergy (Verified 12/29/24 11:59) Tobacco use date assessed: 12/29/24 Dental Screening Dental Screen Date: 12/29/24 Did you have a dental visit in the last 12 months?: Yes Did you have a dental problem in the last 6 months where you did not have access to dental care?: No Was dental information given to patient?: Patient has dentist HPI EBONY HPI Details - The patient is a 34-year-old female pr esenting with a follow-up for depression and panic disorder. She has a longstanding history of anxiety and depression, for which she has been receiving counseling, but is currently not on any medication regimen. Recently, the patient reports an increase in the frequency and severity of anxiety attacks, with the most recent acute episode occurring over the weekend. This episode was characterized by severe anxiety symptoms including pressure sensation in the chest, increased heart rate, sweating, chills, and a sensation similar to a heart attack, which was a new manifestation for her. This incident led her to isolate and attempt to settle herself. Previously, the patient was prescribed an as-needed medication for anxiety, which caused significant side-effects prompting her to feel angry the following day, hence she discontinued its use. This medication was given during an appointment around March. Currently, she is not on any pharmacological treatment for her anxiety disorder. Additionally, the patient complains of increased frequency of headaches located in the frontal region. The headaches exhibit a tension-type quality with associated palpitations and tingling sensations radiating to the top of her head. She also reports poor sleep quality, waking up multiple times during the night. No snoring is reported by her significant other; however, she breathes heavily with her mouth open during sleep. The patient's recent blood work shows normal blood count, normal kidney function, normal blood glucose, and liver function with elevated cholesterol, specifically an LDL of 134 mg/dL. She also has a recorded Vitamin D deficiency and was advised to start supplementation. [facility] Medical History (Updated 12/29/24 @ 12:17 by Adarsh Jarvis MD) Hypercholesterolemia 30 weeks gestation of Concussion URI (upper respiratory infection) Strep throat Abdominal pain No pertinent past medical history Surgical History Previous section History of cyst of breast Family History Mother Cervical cancer Father No problems noted. 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 1. Little interest or pleasure in doing things: several days 2. Feeling down, depressed, or hopeless: several days 3. Trouble falling or staying asleep, or sleeping too much: several days 4. Feeling tired or having little energy: several days 5. Poor appetite or overeating: several days 6. Feeling bad about yourself - or that you are a failure or have let yourself or your family down: several days 7. Trouble concentrating on things, such as reading the newspaper or watching television: several days 8. Moving or speaking so slowly that other people could have noticed. Or the opposite - being so fidgety or restless that you have been moving around a lot m ore than usual: not at all 9. Thoughts that you would be better off or of hurting yourself in some way: not at all Total score: 7 Depression Screening Interpretation: Positive Depression Screening Done: Yes 22362 - PHQ-9 Billing: Yes Source: Developed by Drs. Jose Ramon Maharaj, Ciara Putnam, Louis Monsivais and colleagues, with an educational marcus from [employer]. Thrive Questionnaire Date Thrive assessed: 12/29/24 AUDIT C Alcohol Use Questionnaire (AUDIT-C) 1. How often do you have a drink containing alcohol?: Never Total Score: 0 EBONY-7 AMB Questionnaire EBONY-7 Date EBONY - 7 assessed: 12/29/24 Feeling nervous, anxious, or on edge: 1 = Several days Not being able to stop or control worryin = Several days Worrying too much about different things: 1 = Several days Trouble relaxin = Several days Being so restless that it is hard to sit still: 1 = Several days Becoming easily annoyed or irritable: 1 = Several days Feeling afraid as if something awful might happen: 0 = Not at all Total EBONY-7 score (0-4 normal; 5-9 mild; 10-14 moderate; 15-21 severe): 6 Source: Developed by Drs. Jose Ramon Maharaj, Ciara Putnam, Louis Monsivais and colleagues, with an educational marcus from [employer]. Physical exam (Primary Care) Vital Signs: Last Vital Signs Pulse 79 12/29/24 11:59 BP 114/72 12/29/24 11:59 Pulse Ox 98 12/29/24 11:59 Oxygen Delivery Method Room Air 12/29/24 11:59 BMI result Body Mass Index 31.6 Tobacco/Smoking Status: Tobacco use Status Tobacco use date assessed 12/29/24 12/29/24 12:01 Patient Tobacco Use Status Never used Tobacco 12/29/24 12:01 Tobacco use type Cigarette 12/29/24 12:01 e-Cigarette/Vaping Use Never Used 12/29/24 12:01 PHQ-9: PHQ-9 Score PHQ-9: Total score 7 12/29/24 12:01 Depression Screening Interpretation: Positive Thrive Assessment: Date of Thrive Assessment Date Thrive assessed 12/29/24 12/29/24 12:01 Const General: alert; No acute distress Eyes Conjunctivae: conjunctivae normal Resp Auscultation: clear to auscultation bilaterally Cardio Rate: regular rate Rhythm: regular rhythm GI Inspection: Yes normal to inspection Extrem General: Yes normal to inspection and No edema Coding Level of Care Code Est Pt Level 4 (24561) Diagnoses Obesity (BMI 30-39.9) E66.9 Panic attack F41.0 Hypercholesterolemia E78.00 Additional Codes PHQ-9 - 07865 - PHQ-9 Billing: Yes ([id number]) Assessment & Plan Assessment & Plan (1) Obesity (BMI 30-39.9): Code(s): E66.9 - Obesity, unspecified Category: Medical Plan: Diet and exercise (2) Panic attack: Comment: counselling once a week Code(s): F41.0 - Panic disorder [episodic paroxysmal anxiety] Category: Medical Plan: Patient is getting counseling but no medications presently. (3) Hypercholesterolemia: Code(s): E78.00 - Pure hypercholesterolemia, unspecified Category: Medical Plan - Initiate a daily low-dose pharmacological intervention for anxiety management to stabilize symptoms and improve quality of life. - Monitor cholesterol levels and implement dietary adjustments aimed at reducing LDL levels. Emphasize adherence to a low-cholesterol diet to maintain LDL below 130 mg/dL. - Begin Vitamin D supplementation at a dose of 1000 to 2000 IU per day, particularly during winter months, to address deficiency and support bone health. - Address tension-type headaches by managing underlying anxiety and improving sleep hygiene. - Reinforce counseling sessions for continued psychological support. - Advise on flu vaccination awareness and proper respiratory hygiene practices as preventative health measures. - Educate on the importance of shared ice cream consumption as a part of dietary moderation. Medications: New bupropion HCl XL (Wellbutrin XL) 150 mg PO QAM 30 tabs 3RF F41.0 - Panic disorder [episodic paroxysmal anxiety]
== END 2024-12-29 12:31 | disposition home or self-care (01) ==
PROVIDERS: PCP Internal Medicine; Visit Provider Internal Medicine
DX: E78.00 Pure hypercholesterolemia, unspecified (principal); E66.9 Obesity, unspecified; Z68.31 Body mass index [BMI] 31.0-31.9, adult; F41.0 Panic disorder [episodic paroxysmal anxiety]

== ENCOUNTER → 2024-12-29 11:52 | Outpatient (BNVA) | payer BC, SELFPAY | PROVIDERS: PCP Internal Medicine; Visit Provider Internal Medicine | DX: E66.9 Obesity, unspecified (principal); Z68.31 Body mass index [BMI] 31.0-31.9, adult; F41.0 Panic disorder [episodic paroxysmal anxiety]; F32.A Depression, unspecified; E78.00 Pure hypercholesterolemia, unspecified | CPT/HCPCS: 96127 ==

== ENCOUNTER 2025-02-14 22:02 | Emergency (ER) | payer BC, SELFPAY ==
--- NOTE | ~2025-02-14 | XR_ITS ---
CLINICAL HISTORY: cough 1 view chest x-ray Comparison: None Findings: Lungs are clear without acute infiltrates. No pneumothorax. Heart size normal. No acute bony abnormalities. Impression: No acute processes This document has been electronically signed by: Berto Molina MD on 02/14/2025 23:15:06
[2025-02-14 22:08] VITALS: BP 106/71; PULSE 113; RESP 16; TEMP 37.5; O2SAT 95; BMI 31.5
[2025-02-14 22:28] LABS: Basophils Percent Auto 0.2 % (0-2); Eosinophils Absolute Auto 0.1 X10*3/uL (0.0-0.4); Eosinophils Percent Auto 0.3 % (0-4); Hematocrit 36.3 % (37.0-47.0); Hemoglobin 12.8 g/dl (12.0-16.0); Imm Gran Abs Auto 0.14 X10*3/uL (0.00-0.03); Imm Gran Pct Auto 0.8 % (0.0-0.4); Lymphocytes Percent Auto 5.4 % (20-40); MANUAL DIFF FLAG NO; Mean Corpuscular HGB Conc 35.3 g/dl (31.0-35.0); Mean Corpuscular Hemoglobin 32.1 pg (27.0-33.0); Mean Platelet Volume 10.1 fL (9.4-12.3); Monocytes Absolute Auto 0.7 X10*3/uL (0.1-1.2); Monocytes Percent Auto 4.1 % (2-11); Neutrophils Absolute Auto 15.7 x10*3/uL (2.0-8.3); Neutrophils Percent Auto 89.2 % (45-73); Platelet Count 206 X10*3/uL (160-400); Red Blood Count 3.99 X10*6/uL (4.20-5.50); White Blood Count 17.7 X10*3/uL (4.8-10.8)
[2025-02-14 22:33] LABS: IDNOW Serial# 6674DD1D; Strep A Nucleic Acid Positive (Negative)
[2025-02-14 22:41] LABS: Alanine Aminotransferase 21 U/L (0-31); Albumin Level 4.1 g/dL (3.5-5.0); Alkaline Phosphatase 71 U/L (39-117); Anion Gap 10 (12-20); Aspartate Amino Transferase 20 U/L (5-31); Bilirubin Total 1.3 mg/dL (0.0-1.0); Blood Urea Nitrogen 8 mg/dL (9-16); Calcium 8.8 mg/dL (8.4-10.2); Carbon Dioxide 24 mmol/L (22-29); Chloride 107 mmol/L (96-108); Creatinine Clr Calc Pharmacy 101.1; Estimated Glomerular Filt Rate > 60; Glucose Random 136 mg/dL (60-115); Potassium 3.5 mmol/L (3.3-5.1); Sodium 137 mmol/L (135-145); Total Protein 7.5 g/dL (6.5-8.0)
[2025-02-14 23:05] LABS: Influenza A PCR NEGATIVE (Negative); Influenza B PCR NEGATIVE (Negative); Resp Syncy Virus RNA Qual PCR NEGATIVE (Negative); SARS COV2 PCR INHOUSE NEGATIVE (Negative)
[2025-02-14 23:25] VITALS: BP 111/63; PULSE 95; RESP 16; TEMP 37.2; O2SAT 98
--- NOTE | 2025-02-14 23:37 | ED_ITS ---
HPI - URI/Sore Throat General Chief Complaint: General Medical Stated Complaint: Flu Symptoms Time Seen by Provider: 02/14/25 22:48 Source: patient Mode of arrival: ambulatory Limitations: no limitations History of Present Illness HPI Narrative: Patient is a 34-year-old female who presents emergency department for evaluation of flu-like symptoms with onset earlier this morning endorsing fever, body aches, chills, intermittent headache, sore throat. Denies known sick contacts. Denies associated neck pain, neck stiffness, chest pain, shortness of breath, difficulty breathing, dysphagia, odynophagia, nausea, vomiting, genitourinary symptoms. Related Data Previous Rx's ?Medication ?Instructions ?Recorded ibuprofen 600 mg tablet 600 mg PO Q8H PRN pain #60 tabs 01/01/24 bupropion HCl 150 mg 24 hr tablet, 150 mg PO QAM #30 tabs 12/29/24 extended release (Wellbutrin XL) amoxicillin 500 mg capsule 500 mg PO BID #19 caps 02/14/25 Allergies Allergy/AdvReac Type Severity Reaction Status Date / Time No Known Allergies Allergy Verified 02/14/25 22:10 [No Known Allergies*] Review of Systems 2 Review of Systems: Yes all other systems are reviewed and are negative PMFSH Past Medical History Attestation statement: The following information was validated with the patient. Source: old records reviewed Medical History Hypercholesterolemia 30 weeks gestation of Concussion URI (upper respiratory infection) Strep throat Abdominal pain No pertinent past medical history Surgical History Previous section History of cyst of breast Family History Family History Mother Cervical cancer Father No problems noted. 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) Do you presently have visiting nurse or other home services: No Alcohol intake: current Comment: once a month 1-2 glass Patient Tobacco Use Status: Never used Tobacco Tobacco use type: Cigarette e-Cigarette/Vaping Use: Never Used Second Hand Smoke Exposure: No Advance Directives: No Do you have a plan to hurt others: No Plan service: No Current occupational status: employed Current occupational exposures/hazards: No Cognitive needs: No Hearing needs: No Vision needs: Yes Physical Exam 2 Vital Signs: Vital Signs: Last Vital Signs Temp 98.9 F 02/14/25 23:25 Pulse 95 02/14/25 23:25 Resp 16 02/14/25 23:25 BP 111/63 02/14/25 23:25 Pulse Ox 98 02/14/25 23:25 O2 Del Method Room Air 02/14/25 23:25 BMI result Body Mass Index 31.5 Appearance: Alert.?Oriented to person, place and time. No acute distress.?Normal affect. Eyes: Pupils equal, round and reactive to light.? ENT: TM normal bilaterally. Pharynx is erythematous with tonsillar hypertrophy 2+ bilaterally no exudates. Uvula is midline. No trismus. No drooling. Neck: Normal inspection.? Neck supple.??No cervical adenopathy. Full range of motion. No nuchal rigidity. CVS: Heart sounds normal. Normal heart rate and rhythm.? Pulses normal.?? Respiratory: No respiratory distress.? Lung sounds clear to auscultation bilaterally?? Abdomen: Soft and non-tender. Normoactive bowel sounds. Skin: Skin warm and dry.? Normal skin color.? ? Extremities: No lower extremity edema.? Neuro: Moves all extremities spontaneously. Sensation intact bilaterally. No motor deficits. Ambulates with normal steady gait. Medical Decision Making Medical Decision Making MDM Narrative: Patient is a 34 old female presents emergency department for evaluation of flu- like symptoms including sore throat COVID-19/influenza/RSV testing is negative. Group a strep testing is positive. 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 CXR is without consolidation or infiltrate. Overall she is Well-appearing, nontoxic, afebrile, no persistent tachycardia or tachypnea/hypoxia. Speaking clear full sentences, ambulatory with steady gait. Tolerating oral intake without difficulty. Able to swallow normally. Received initial dose of amoxicillin in the emergency department that remainder prescription to patient's pharmacy Discussed conservative treatment including rest, hydration, Tylenol/ibuprofen as needed for fever and body aches, saline nasal spray, humidifier, avmf-eto-uvroohl cold medication. Advised to follow-up with primary care provider as needed, discussed reasons to return back to the emergency department. All questions were answered. Patient discharged home in stable condition. Differential Diagnosis Differential Diagnoses: The differential diagnosis associated with the presentation includes ( See narrative above) Admission/Observation Consideration of admission/observation: Escalation of care including admission/observation considered ( see narrative above) Lab Data MDM Lab Attestation statement: I reviewed the patient's lab results. ( see narrative above) CBC revealing a leukocytosis in the setting of group a strep pharyngitis, no significant anemia or thrombocytopenia. No significant electrolyte derangement. No RHETT. 02/14/25 22:17 02/14/25 22:17 Labs: Lab Results 02/14/25 Range/Units 22:17 WBC 17.7 H (4.8-10.8) X10*3/uL RBC 3.99 L (4.20-5.50) X10*6/uL Hgb 12.8 (12.0-16.0) g/dl Hct 36.3 L (37.0-47.0) % MCV 91.0 (80.0-98.0) fL MCH 32.1 (27.0-33.0) pg MCHC 35.3 H (31.0-35.0) g/dl RDW 12.0 (11.0-16.0) % Plt Count 206 (160-400) X10*3/uL MPV 10.1 (9.4-12.3) fL Immature Gran % (Auto) 0.8 H (0.0-0.4) % Neut % (Auto) 89.2 H (45-73) % Lymph % (Auto) 5.4 L (20-40) % [place] % (Auto) 4.1 (2-11) % Eos % (Auto) 0.3 (0-4) % Baso % (Auto) 0.2 (0-2) % Lymph # (Auto) 1.0 L (1.2-4.9) X10*3/uL [place] # (Auto) 0.7 (0.1-1.2) X10*3/uL Eos # (Auto) 0.1 (0.0-0.4) X10*3/uL Baso # (Auto) 0.0 (0.0-0.2) X10*3/uL Abs Immat Gran (auto) 0.14 H (0.00-0.03) X10*3/uL Absolute Neuts (auto) 15.7 H (2.0-8.3) x10*3/uL Absolute Nucleated RBC 0.000 (0.0-0.012) X10*3/uL Nucleated RBC % (auto) 0.0 (0.0-0.2) /100WBC Sodium 137 (135-145) mmol/L Potassium 3.5 D (3.3-5.1) mmol/L Chloride 107 (96-108) mmol/L Carbon Dioxide 24 (22-29) mmol/L Anion Gap 10 L (12-20) BUN 8 L (9-16) mg/dL Creatinine 0.70 (0.5-1.4) mg/dL Estim Creat Clear Calc 101.1 Estimated GFR > 60 Random Glucose 136 H (60-115) mg/dL Calcium 8.8 (8.4-10.2) mg/dL Total Bilirubin 1.3 H (0.0-1.0) mg/dL AST 20 (5-31) U/L ALT 21 (0-31) U/L Alkaline Phosphatase 71 (39-117) U/L Total Protein 7.5 (6.5-8.0) g/dL Albumin 4.1 (3.5-5.0) g/dL Influenza Type A (PCR) NEGATIVE (Negative) Influenza Type B (PCR) NEGATIVE (Negative) RSV RNA Qual (PCR) NEGATIVE (Negative) SARS-CoV-2 RNA (RT-PCR) NEGATIVE (Negative) S. pyogenes GrpA JENNIFER Positive A (Negative) Independent Interpretation I performed an independent interpretation of an: Plain X-Ray (See narrative above) Radiology Impression Discussion of test interpretation with radiology: I have reviewed the radiologist's reading. Radiologist Impression: 1 view chest x-ray Comparison: None Findings: Lungs are clear without acute infiltrates. No pneumothorax. Heart size normal. No acute bony abnormalities. Impression: No acute processes External Record Review External record reviewed: Outpatient record Prescription Management I considered prescription management with: Pain Medication ( acetaminophen/ibuprofen) and Antibiotic Chronic Conditions Patient?s care impacted by: Other (See PMFSH section) Discharge Plan Discharge Clinical Impression: Acute streptococcal pharyngitis Patient Disposition: Home, Self-Care Instructions: Strep Throat (ED) Additional Instructions: Be sure to rest, stay well hydrated drinking plenty of fluids, eat small frequent meals. Tylenol/ibuprofen can be used as needed for fever/pain. Tdbc-khd-xrikgyq cold medications may be helpful as well for symptoms. Saltwater gargles, Chloraseptic throat spray/analgesic throat sprain lozenges from the pharmacy. Prescription for antibiotic has been sent to your pharmacy please pick this up tomorrow morning and begin taking as you received the 1st dose in the emergency department tonight. You may return to the emergency department with any new or worsening symptoms or concerns. Follow-up with your primary care provider as needed. Should remain out of school/ work until symptoms have resolved and have been without a fever for 24 hours without the use of Tylenol or ibuprofen. Prescriptions: New amoxicillin 500 mg capsule 500 mg PO BID Qty: 19 0RF No Action ibuprofen 600 mg tablet 600 mg PO Q8H PRN (Reason: pain) Qty: 60 0RF bupropion HCl [Wellbutrin XL] 150 mg tablet extended release 24 hr 150 mg PO QAM Qty: 30 3RF Referrals: Po,Adarsh Gregory MD [Primary Care Provider] - Print Language: Malay
[2025-02-15] MEDS: Amoxicillin 500 MG CAPSULE PO (00:05)
[2025-02-15 00:07] VITALS: BP 111/63; PULSE 95; RESP 16; TEMP 37.2; O2SAT 98
== END 2025-02-15 00:08 | disposition home or self-care (01) ==
PROVIDERS: Emergency Provider Emergency Medicine; PCP Internal Medicine
DX: J02.0 Streptococcal pharyngitis (principal); R05.9 Cough, unspecified; R50.9 Fever, unspecified; R51.9 Headache, unspecified
CPT/HCPCS: 0241U; 71045; 80053; 85025; 87651; 99282; 99283

== ENCOUNTER → 2025-02-14 22:35 | Outpatient (BNV) | payer BC, SELFPAY | PROVIDERS: Emergency Provider Emergency Medicine; PCP Internal Medicine; Visit Provider Radiology Diagnostic Radiology | DX: R05.9 Cough, unspecified (principal) | CPT/HCPCS: 71045 ==

== ENCOUNTER 2025-03-22 14:42 | Outpatient (AMB) | payer BC, SELFPAY ==
--- NOTE | 2025-03-22 14:53 | MHC.OFFWIV ---
Intake Vital Signs 03/22/25 14:58 Height 5 ft Weight 162 lb BMI 31.6 BP 100/70 Blood Pressure Location Rt brachial Position Sitting Respiration 15 Pulse 91 Pulse Source Pulse Oximeter Temp 98.6 F Temp Source Oral Pulse Oximetry (%) 99 Oxygen Delivery Method Room Air Intake Visit Reasons: EP-lt neck, shoulder & upper back pain/swollen Intake Note: Pt is here today c/o Lt side of neck into Lt shoulder and upper back pain: x3 days ago was going gardening that's when the pain started Patient Tobacco Use Status: Never used Tobacco Allergies No Known Allergies [No Known Allergies*] Allergy (Verified 03/22/25 15:02) HPI HPI Comments History of Present Illness Details Patient is a 34yo F who presents to office with neck and upper back pain She said over the weekend she was gardening without trauma or injury SHe said she felt worsening neck pain after this Pain is L sided in neck and radiates into posterior head and L arm + tingling in L shoulder with shooting pain into L arm Worsened when she moves LUE and neck She is R hand dominant and there is no symptoms to R side Pain is a 10/10 sharp tight pain SHe has tried tylenol/motrin, hot/cold compress, topical lidocaine patches, massages She said headache L sided posterior head radiates to the top Light makes it worse. Quiet dark makes better No CP or SOB + slight nausea due to pain No vomiting No syncope No LOC or head trauma PFSH Medical History Hypercholesterolemia 30 weeks gestation of Concussion URI (upper respiratory infection) Strep throat Abdominal pain No pertinent past medical history Surgical History Previous section History of cyst of breast Family History Mother Cervical cancer Father No problems noted. 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: Yes (grandparents) Do you presently have visiting nurse or other home services: No Alcohol intake: current Comment: once a month 1-2 glass Patient Tobacco Use Status: Never used Tobacco Tobacco use type: Cigarette e-Cigarette/Vaping Use: Never Used Second Hand Smoke Exposure: No service: No Current occupational status: employed Current occupational exposures/hazards: No Cognitive needs: No Hearing needs: No Vision needs: Yes Review of Systems Const Denies chills, Denies fatigue, Denies fever(s), Denies frequent falls and Reports headache(s) Eyes Denies change in vision ENT Reports dizziness, Denies otalgia, Denies facial pain, Reports headache(s), Reports neck pain, Denies nose pain and Denies sore throat Card Denies chest pain, Denies syncope, Denies rapid heart rate and Denies dyspnea Resp Denies cough and Denies dyspnea GI Denies abdominal pain, Reports nausea and Denies vomiting Musc Reports neck pain, Reports radiating pain into limb, Reports stiffness and Reports tingling Skin/Breast Denies erythema, Denies rash and Denies unusual bruising Neuro Denies confusion, Reports dizziness, Denies syncope, Denies frequent falls, Reports headache(s), Denies focal weakness and Reports tingling Psych Denies confusion Endo Denies fatigue Physical Exam Vital Signs: Last Vital Signs Temp 98.6 F 03/22/25 14:58 Pulse 91 03/22/25 14:58 Resp 15 03/22/25 14:58 BP 100/70 03/22/25 14:58 Pulse Ox 99 03/22/25 14:58 Oxygen Delivery Method Room Air 03/22/25 14:58 BMI result Body Mass Index 31.6 General: Non-toxic, NAD. Speaking full sentences. Skin: Warm dry throughout. No posterior neck or scalp vesicular lesions, ecchymosis or rash Eye: PERRL, EOMI without entrapment or nystagmus HENT: Airway patent. Uvula midline. No pharyngeal erythema or edema. No HARBOR PILOT. Bilateral canals clear. TM non-erythematous, non-bulging. No TM perforation or hemotympanum noted. Neck: No lymphadenopathy to tonsillar, occipital or anterior cervical region + midline spinal cervical ttp. + L sided cervical(trapezius) paravertebral muscle ttp with spasm. + tightening to palpation of L trapezius muscle on lateral neck. No carotid bruits or thyroid masses palpated Respiratory: CTA bilaterally. No wheezes, rales or rhonchi Cardiac: RRR. No murmur. Radial pulse 2+ and equal in strength and timing bilaterally MSK: No midline thoracic or lumbar tenderness. + ttp L trapezius muscle as described above. + ROM at L shoulder with forward extension to 90 degrees. No point ttp of L AC joint or lateral humeral head but + trapezius tenderness. 5/5 senior underwriting assistant strength bilaterally. + full ROM digits L hand with sensation intact. Neurology: Alert. No aphasia or facial droop. Negative pronator drift. Equal strength. Gait without abnormality Psych: Good mood and affect Const General: No confusion Orientation/consciousness: No confusion Neuro General: No confusion Assessment & Plan Assessment & Plan (1) Trapezius muscle strain: Code(s): S46.819A - Strain of other muscles, fascia and tendons at shoulder and upper arm level, unspecified arm, initial encounter Qualifiers: Encounter type: initial encounter Laterality: left Qualified Code(s): S46.812A - Strain of other muscles, fascia and tendons at shoulder and upper arm level, left arm, initial encounter Plan: Patient seen and evaluated. No neurological deficit on exam No trauma or current concern cervical fx Physical exam consistent with MSK Warm compress, gentle ROM Dexamethasone (with food Avoid nsaids and alcohol) Muscle relaxant (lethargy; no alcohol or driving) Discussed ER s/s such as CP, SOB, near syncope, worsening pain, fever Patient gave verbal understanding and had no additional questions or concerns at time of discharge All questions answered Medications: New dexamethasone 4 mg PO BID 10 tabs 0RF methocarbamol 750 mg PO TID 20 tabs 0RF Coding Level of Care Code Est Pt Level 3 (02951) Diagnoses Strain of left trapezius muscle, initial encounter S46.812A Encounter type: initial encounter Laterality: left
[2025-03-22 14:58] VITALS: BP 100/70; PULSE 91; RESP 15; TEMP 37; O2SAT 99; BMI 31.6
--- OUTSIDE RECORDS SUMMARY | 2025-03-22 15:53 | XMS_ITS | Clinical Summary ---
Author Organization [facility] Address [address] [place] [id number] Phone Care Team Providers Care Floor Scraper Name Role Phone Physician, No Pcp Primary Care Provider Unavaila ble Allergies No known active allergies Medications ibuprofen (ADVIL,MOTRIN) 600 mg tabletIndicatio ns:Menorrhagia with regular cycle Take 1 tablet (600 mg total) by mouth every 6 (six) hours if needed for moderate pain (and heavy menses). 90 tablet 1 11/01/2024 11/01/20 25 Active Active Problems Problem Noted Date Diagnosed [...] -superficial thrombus- NO DVT Anticoagulated per initial [facility] recommendtion with Lovenox 40 mg SQ BID, no need for transfer Hematology consultation at [place] 04/14/22 - decrease Lovenox to daily, stop 04/22/22, then warm compresses and elevation. Repeat ultrasound demonstrated improvement. They will see her back in April for PP planning. MFM appointment scheduled 04/22- they called and cancelled given it was superficial and not planning on staying on salvage determiner therapeutic anticoagulation. Last Assessment & Plan: No need to transfer to [facility] due to stopping therapuetic anticoagulation and only superficail vein thrombosis. Patient will continue appts here Edema during , second trimester 022 Overview (09/12/2024): 02/18/2022- LE edema to left leg, per pt report went to [facility] ED and DVT was ruled out. Doppler not available for review. LE edema resolved with elevation of feet Obesity in 11/19/2021 Overview (09/12/2024): BMI- 30.2 HgbA1C at initial labs One hour GTT in first trimester Repeat GTT 24-28 weeks if early is normal Level 2 Survey (at [facility] for BMI >40) Refer to nutrition for BMI >40 Growth US at 32 and 36 weeks for for BMI >40 Weekly NST at 32 weeks for BMI >45 Screen for ALESSANDRO (using tool) and refer for sleep study if positive Anesthesia consult for pre- BMI >45 or >50 lb weight gain Transfer to [facility] for pre- BMI >50 DVT prophylaxis- Lovenox if CS and BMI >35 Migraine headache 01/14/2021 Abnormal Pap smear of cervix 03/25/2018 Immunizations Name Administration Dates Next Due DTaP (Infanrix) 6wks to less than 7yo ,10/14/1993,06/24/1993,1992 TBvC-OOR-CSP (Pentacel) 2mo to less than 5yo 02/06/1994,10/14/1993,06/24/1993,1992 HPV, Quadrivalent 12/16/2007,08/04/2007,03/30/20 07 Hepatitis B (Fzvngwq-R-Tvzas , Recombivax HB-Adult) 19yo and older 09/24/2016,02/27/2016,01/24/2016,1995,01/29/1996,01/01/1996 [...] drink = 0.6 oz pur e alcohol) Comments No Sex and Gender Information Value Date Recorded Sex Assigned at Not on file Legal Sex Female 3:58 AM EST Gender Identity Not on file Sexual Orientation Not on file Obstetrics History Para Term AB IAB SAB Ectopic Multiple Livin g Live Births 4 2 2 2 2 2 2 Date Outcome GA Total Labor Labor//3rd Weight Sex Type Anes PTL Mylene A1 A5 Name Clin 2011 SAB 2012 SAB 2017 Term 40w 3d 3289 g (116 oz) F Vag-S pont Epidur al Livin g 8 9 [place] [facility] Delivery Location:[facility] 2021 Term 39w 3d F CS-Un spec Livin g Delivery Location:[facility] Last Filed Vital Signs Vital Sign [...] patient's age to complete this topic Meningococcal B Vaccine Aged Out No l onger eligible based on patient's age to complete [...] Procedure Name Priority Date/Time Associated Diagnosis Comments HEPATITIS C SCREENING Routine 11/04/2021 HIV SCREENING Routine 11/04/2021 LIPID PANEL Routine 10/09/2021 HPV Routine 09/02/2021 from Last 3 Months or Most Recently Relevant to Health Maintenance Results * HIV Screening (11/04/2021) Pathologist [facility] HIV Screening abstracted [facility] Provider HEALTH MAINTENANCE Final Result * Hepatitis C Screening (11/04/2021) [facility] Hepatitis C Screening abstracted Result [facility] Provider HEALTH MAINTENANCE Final Result * (ABNORMAL) Lipid panel (10/09/2021) [facility] LDL/HDL Ratio 4 0 - 4 Triglycerides 139 0 - 150 mg/dL Cholesterol 188 0 - 200 mg/dL HDL 49 >=40 mg/dL LDL Cholesterol 112(A) 0 - 100 mg/dL Blood Venous blood specimen / Unknown Result [facility] Provider LAB BLOOD ORDERABLES Isabella l Result * Cervical Cancer Screening: HPV (09/02/2021) [facility] Cervical Cancer Screening: HPV negative,a bstracted Result [facility] Provider HEALTH MAINTENANCE Final Result from Last 3 Months or Most Recently Relevant to Health Maintenance Insurance [facility] ([facility]) Care Teams Floor Scraper Relationship Specialty Start Date End Date Physician, No Pcp PCP - General 10/28/24
== END 2025-03-22 15:42 | disposition home or self-care (01) ==
PROVIDERS: PCP Internal Medicine; Visit Provider Physician Assistant
DX: S46.812A Strain of other muscles, fascia and tendons at shoulder and upper arm level, left arm, initial encounter (principal)

== ENCOUNTER → 2025-03-22 14:42 | Outpatient (BNVA) | payer BC, SELFPAY | PROVIDERS: PCP Internal Medicine; Visit Provider Physician Assistant ==

== ENCOUNTER 2025-03-25 14:44 | Emergency (ER) | payer BC, SELFPAY ==
--- NOTE | ~2025-03-25 | CT_ITS ---
CLINICAL HISTORY: WARNER, N V, presyncope, neck pain CT Head without contrast. CT angiography head and neck with contrast. 3D Postprocessing. Comparison: None Findings: HEAD CT: No intra-axial mass, midline shift, hydrocephalus, or acute hemorrhage. No significant atrophy-like change or white matter disease. There is no sinus or mastoid fluid. The orbits are within normal limits. No skull fracture. HEAD AND NECK CTA: Aortic arch and cervical great vessels are patent. Intracranial arteries are patent. No aneurysm, dissection, or occlusion. No abnormal intracranial enhancement. The visualized thyroid gland is unremarkable. No cervical mass or fluid collection. Lung apices clear. No acute fracture. IMPRESSION: 1. Unremarkable head CT. 2. Patent head and neck CTA. This document has been electronically signed by: Alok Fenton MD on 03/25/2025 18:24:38
[2025-03-25 14:52] VITALS: BP 122/75; PULSE 107; RESP 18; TEMP 38; O2SAT 99; BMI 31.6
[2025-03-25 15:10] LABS: MANUAL DIFF FLAG NO
[2025-03-25 15:11] LABS: Basophils Percent Auto 0.2 % (0-2); Eosinophils Percent Auto 0.1 % (0-4); Hemoglobin 12.9 g/dl (12.0-16.0); Imm Gran Abs Auto 0.05 X10*3/uL (0.00-0.03); Imm Gran Pct Auto 0.4 % (0.0-0.4); Lymphocytes Absolute Auto 1.7 X10*3/uL (1.2-4.9); Lymphocytes Percent Auto 13.3 % (20-40); Mean Corpuscular HGB Conc 33.9 g/dl (31.0-35.0); Mean Corpuscular Hemoglobin 31.5 pg (27.0-33.0); Mean Corpuscular Volume 92.7 fL (80.0-98.0); Mean Platelet Volume 9.8 fL (9.4-12.3); Monocytes Absolute Auto 1.2 X10*3/uL (0.1-1.2); Monocytes Percent Auto 8.9 % (2-11); Neutrophils Absolute Auto 10.1 x10*3/uL (2.0-8.3); Neutrophils Percent Auto 77.1 % (45-73); Platelet Count 225 X10*3/uL (160-400); Red Cell Distribution Width 12.6 % (11.0-16.0); White Blood Count 13.1 X10*3/uL (4.8-10.8)
[2025-03-25 15:25] LABS: Anion Gap 16 (12-20); Blood Urea Nitrogen 7 mg/dL (9-16); Calcium 8.8 mg/dL (8.4-10.2); Carbon Dioxide 25 mmol/L (22-29); Chloride 103 mmol/L (96-108); Creatinine Clr Calc Pharmacy 95.8; Estimated Glomerular Filt Rate > 60; Glucose Random 99 mg/dL (60-115); Potassium 3.6 mmol/L (3.3-5.1); Sodium 140 mmol/L (135-145)
[2025-03-25 15:52] LABS: Influenza A PCR NEGATIVE (Negative); Influenza B PCR NEGATIVE (Negative); Resp Syncy Virus RNA Qual PCR NEGATIVE (Negative); SARS COV2 PCR INHOUSE NEGATIVE (Negative)
--- NOTE | 2025-03-25 16:47 | ED_ITS ---
HPI - General Adult General Chief complaint: General Medical Stated complaint: chills, headache, faint Time Seen by Provider: 03/25/25 16:47 Source: patient, RN notes reviewed and old records reviewed Mode of arrival: ambulatory History of Present Illness ED Provider: Anju Thompson PA-C HPI narrative: 34-year-old female with a past medical history HLD, recent strep throat, presenting to the ED complaining of intermittent headache x today with associated room spinning dizziness, lightheadedness, chills, photophobia, and nausea/emesis x2. States dizziness worse with position change, and associated with blurry vision. Admits was taking shower and felt lightheaded/presyncopal, seeing black, stepped out of shower and vomited twice, denies LOC. Reports neck pain/stiffness earlier in the week which she was evaluated at urgent Care, prescribed prednisone/muscle relaxer with relief, denies neck pain at present. Denies recent neck manipulation, trauma. Denies headache be maximal at onset. Denies vision loss, CP/SOB, abdominal pain, weakness, anticoagulation use Related Data Previous Rx's ?Medication ?Instructions ?Recorded ibuprofen 600 mg tablet 600 mg PO Q8H PRN pain #60 tabs 01/01/24 dexamethasone 4 mg tablet 4 mg PO BID #10 tabs 03/22/25 methocarbamol 750 mg tablet 750 mg PO TID #20 tabs 03/22/25 [id number]-sprmlchpxsbdj-okrvxpzk 1 cap PO Q4-6H PRN headache #14 03/25/25 50 mg-300 mg-40 mg capsule caps (Fioricet) nitrofurantoin 100 mg PO Q12H 7 days #14 caps 03/25/25 monohydrate/macrocrystals 100 mg capsule (Macrobid) Allergies Allergy/AdvReac Type Severity Reaction Status Date / Time No Known Allergies Allergy Verified 03/25/25 14:56 [No Known Allergies*] Review of Systems 2 Review of Systems: Yes all other systems are reviewed and are negative Constitutional: Constitutional: Reports as per HPI Eyes: Eyes: Reports photophobia Neurologic: Denies Abnormal speech present [facility] Past Medical History Attestation statement: The following information was validated with the patient. Source: old records reviewed Medical History Hypercholesterolemia 30 weeks gestation of Concussion URI (upper respiratory infection) Strep throat Abdominal pain No pertinent past medical history Surgical History Previous section History of cyst of breast Family History Family History Mother Cervical cancer Father No problems noted. 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 a significant other at home: Yes (grandparents) Do you presently have visiting nurse or other home services: No Alcohol intake: never Comment: once a month 1-2 glass Patient Tobacco Use Status: Never used Tobacco Tobacco use type: Cigarette Smoked in Last 30 Days: No e-Cigarette/Vaping Use: Never Used Second Hand Smoke Exposure: No Use of substances other than those prescribed or required for medical reasons: No Advance Directives: No Advance Directives Information Provided: No service: No Current occupational status: employed Current occupational exposures/hazards: No Cognitive needs: No Hearing needs: No Vision needs: Yes Physical Exam ED Vital Signs: Vital Signs - 24 hr 03/25/25 14:52 03/25/25 18:00 03/25/25 18:20 Temperature 100.4 F 98.9 F Pulse Rate 107 H 86 69 Respiratory Rate 18 18 Blood Pressure 122/75 102/64 95/47 L Pulse Oximetry 99 98 Oxygen Delivery Method Room Air Room Air 03/25/25 18:22 03/25/25 18:23 Temperature Pulse Rate 78 72 Respiratory Rate Blood Pressure 105/64 105/60 Pulse Oximetry Oxygen Delivery Method BMI result Body Mass Index 31.6 Const General: cooperative, healthy appearing and no acute distress Orientation/consciousness: patient oriented x3 Limitations: no limitations HENMT Head: Yes normal to inspection and Yes atraumatic Ears: hearing grossly normal bilaterally, external ears normal and mastoids normal General nose exam: Normal external nose present Face and sinus: Yes normal facial exam Mouth: Normal oral and palatal mucosa present and no drooling Throat: Yes posterior oropharynx normal Eyes General: appearance normal, both eyes and all related structures Pupils: Equal, round and reactive pupils present EOM: EOMs intact bilaterally and Nystagmus present Direct Ophthalmoscopy: photophobia Neck Neck: Yes normal visual inspection, Yes full ROM, Yes no meningeal signs, Yes supple and No anterior neck swelling Resp Effort & Inspection: normal respiratory effort and no respiratory distress Auscultation: clear to auscultation bilaterally Cardio Rate: regular rate Heart sounds: S1 normal heart sound present and S2 normal heart sound present GI Inspection: Yes normal to inspection Palpation (GI): Soft to palpation, nontender, no guarding and not rigid General: Yes no CVA tenderness Back/Spine/Pelvis Back: no CVA tenderness Skin Rashes: no rashes Wounds: no wounds Neuro General: patient oriented x3, tone normal, moves all extremities, no meningeal signs, no focal motor deficits and CN's II-XI intact bilaterally Cranial nerves: Yes CN's II-XII intact bilaterally, Yes Equal, round and reactive pupils present, Yes Bilaterally intact EOM present and Yes Nystagmus present horizontal fast component to the left Cognition (Neuro): normal cognition Speech: No Abnormal speech present Gait exam (Neuro): Normal gait present Motor exam (neuro): 5/5 motor strength present throughout, Pronator motor function not present and no tremor noted Coordination: amftqx-fu-akgk test normal Romberg Test: Negative Extrem General: Yes normal to inspection Course Course Course Narrative: -1800--leukocytosis of 13.1. Labs otherwise reassuring -UA infected > we will give p.o. Macrobid. negative. -viral testing negative -1814--on re-evaluation patient reports symptomatic improvement, sitting upright in stretcher, eating. -1827--orthostatic vital signs negative CT angio head neck IMPRESSION: 1. Unremarkable head CT. 2. Patent head and neck CTA. > on re-evaluation patient reports symptomatic improvement. Feels comfortable for discharge home at this time. Will discharge home with Fioricet and close PCP follow-up. Results discussed with patient including worrisome signs and symptoms and strict return precautions, and when to return to the emergency department. They verbalized understanding and feel safe for discharge at this time. Medications Administered Discontinued Medications Generic Name Dose Route Start Last Admin Trade Name Freq PRN Reason Stop Dose Admin Acetaminophen/Butalbital/Caffeine 1 tab 03/25/25 17:03 03/25/25 17:25 Butalb/Acetamin/Caff 50/325/40 Tablet PO 03/25/25 17:04 1 tab ONCE ONE Administration Diphenhydramine HCl 12.5 mg 03/25/25 17:03 03/25/25 17:27 Diphenhydramine Hcl 50 Mg/Ml Vial IVPUSH 03/25/25 17:04 12.5 mg ONCE ONE Administration Sodium Chloride 1,000 mls @ 999 mls/hr 03/25/25 17:15 03/25/25 17:26 Ns IV 03/25/25 18:15 999 mls/hr .Q1H1M ALPHONSE Administration Iohexol 100 ml 03/25/25 18:05 03/25/25 18:06 Iohexol 350 Mg/Ml 100 Ml Infus..Btl IV 03/25/25 18:06 70 ml ONCE ONE Administration Meclizine HCl 25 mg 03/25/25 17:04 03/25/25 17:26 Meclizine Hcl 25 Mg Tablet PO 03/25/25 17:05 25 mg ONCE ONE Administration Metoclopramide HCl 10 mg 03/25/25 17:03 03/25/25 17:29 Metoclopramide Hcl 10 Mg/2 Ml Vial IVPUSH 03/25/25 17:04 10 mg ONCE ONE Administration Nitrofurantoin Macrocrystals 100 mg 03/25/25 18:01 03/25/25 18:09 Nitrofurantoin Monohyd/M-Cryst 100 Mg Capsule PO 03/25/25 18:02 100 mg ONCE ONE Administration Medical Decision Making Medical Decision Making MDM Narrative: 34-year-old female with a past medical history HLD, recent strep throat, presenting to the ED complaining of intermittent headache x today with associated room spinning dizziness, lightheadedness, chills, photophobia, and nausea/emesis x2. On exam initially tachycardic, low-grade temp 100.4 degrees, + photophobia and leftward horizontal nystagmus, no focal neuro deficits. No meningeal signs or neck stiffness. Concern for complicated migraine headache vs vertigo vs presyncope vs metabolic abnormalities vs cervical dissection. Lower suspicion for SAH/CVT or meningitis/encephalitis. Headache not maximal onset. Low suspicion for CVA/TIA. Low suspicion for severe sepsis [1759] Plan: Labs, UA, viral testing, CTA head and neck, symptomatic remedies, re- evaluate Please refer to course for remaining clinical decision making, interpretation of labs/imaging results, and discussions with consultants and/or family members. Differential Diagnosis Differential Diagnoses: The differential diagnosis associated with the presentation includes As above Admission/Observation Consideration of admission/observation: Escalation of care including admission/observation considered Lab Data MDM Lab Attestation statement: I reviewed the patient's lab results. 03/25/25 15:05 03/25/25 15:05 Labs: Lab Results 03/25/25 03/25/25 Range/Units 15:05 16:31 WBC 13.1 H (4.8-10.8) X10*3/uL RBC 4.10 L (4.20-5.50) X10*6/uL Hgb 12.9 (12.0-16.0) g/dl Hct 38.0 (37.0-47.0) % MCV 92.7 (80.0-98.0) fL MCH 31.5 (27.0-33.0) pg MCHC 33.9 (31.0-35.0) g/dl RDW 12.6 (11.0-16.0) % Plt Count 225 (160-400) X10*3/uL MPV 9.8 (9.4-12.3) fL Immature Gran % (Auto) 0.4 (0.0-0.4) % Neut % (Auto) 77.1 H (45-73) % Lymph % (Auto) 13.3 L (20-40) % Mckenzie % (Auto) 8.9 (2-11) % Eos % (Auto) 0.1 (0-4) % Baso % (Auto) 0.2 (0-2) % Lymph # (Auto) 1.7 (1.2-4.9) X10*3/uL Mckenzie # (Auto) 1.2 (0.1-1.2) X10*3/uL Eos # (Auto) 0.0 (0.0-0.4) X10*3/uL Baso # (Auto) 0.0 (0.0-0.2) X10*3/uL Abs Immat Gran (auto) 0.05 H (0.00-0.03) X10*3/uL Absolute Neuts (auto) 10.1 H (2.0-8.3) x10*3/uL Absolute Nucleated RBC 0.000 (0.0-0.012) X10*3/uL Nucleated RBC % (auto) 0.0 (0.0-0.2) /100WBC Sodium 140 (135-145) mmol/L Potassium 3.6 (3.3-5.1) mmol/L Chloride 103 (96-108) mmol/L Carbon Dioxide 25 (22-29) mmol/L Anion Gap 16 (12-20) BUN 7 L (9-16) mg/dL Creatinine 0.74 (0.5-1.4) mg/dL Estim Creat Clear Calc 95.8 Estimated GFR > 60 Random Glucose 99 (60-115) mg/dL Calcium 8.8 (8.4-10.2) mg/dL Magnesium 1.7 (1.6-2.6) mg/dL Total Bilirubin 1.1 H (0.0-1.0) mg/dL Direct Bilirubin 0.3 (0.0-0.5) mg/dL AST 16 (5-31) U/L ALT 21 (0-31) U/L Alkaline Phosphatase 69 (39-117) U/L Total Protein 7.7 (6.5-8.0) g/dL Albumin 4.0 (3.5-5.0) g/dL Urine Color Yellow Urine Appearance Cloudy Urine pH 6.0 (5.0-9.0) Ur Specific [place] 1.010 (1.005-1.025) Urine Protein 30 (1+) H (Neg-Trace) mg/dL Urine Glucose (UA) Negative (Negative) mg/dL Urine Ketones Negative (Negative) mg/dL Urine Blood Small (1+) H (Negative) Urine Nitrite Positive H (Negative) Ur Leukocyte Esterase Large (3+) H (Negative) Urine RBC 3-5 H (0-2) /HPF Urine WBC >50 H (0-5) /HPF Urine WBC Clumps Present Ur Squamous Epith Cells 3-5 (0-2) /HPF Urine Bacteria 2+ (None Seen) Hyaline Casts 3-5 (0-2) /LPF Granular Casts Present Urine Test NEGATIVE (NEGATIVE) Influenza Type A (PCR) NEGATIVE (Negative) Influenza Type B (PCR) NEGATIVE (Negative) RSV RNA Qual (PCR) NEGATIVE (Negative) SARS-CoV-2 RNA (RT-PCR) NEGATIVE (Negative) Independent Interpretation I performed an independent interpretation of an: CT Scan Radiology Impression Discussion of test interpretation with radiology: I have reviewed the radiologist's reading. External Record Review External record reviewed: Inpatient record, Office record, Outpatient record, Prior outpatient labs, Prior outpatient radiology, Primary care record and Outside ED record Tests considered The following testing was considered but not selected: As above Prescription Management I considered prescription management with: Pain Medication and Other Chronic Conditions Patient?s care impacted by: Other Social Determinants Patient?s care significantly limited by Social Determinants of Health including: Other Social Determinant of Health Discharge Plan Discharge Clinical Impression: UTI (urinary tract infection), Pre-syncope, Complicated migraine Patient Disposition: Home, Self-Care Instructions: Urinary Tract Infection in Women (DC), Migraine Headache (ED), Near Syncope (ED) Additional Instructions: Your blood work and imaging studies are reassuring You do have a UTI. Macrobid as an antibiotic please take as prescribed Fioricet is a combination headache medication, please take as needed for acute headache. This does have Tylenol mixed in, do not exceed 4 g of Tylenol in 1 day If your symptoms persist or worsen her headache is constant, worsening, you persistent nausea, vomiting, weakness, vision change or loss return to the ED immediately In addition you may take ibuprofen at home Prescriptions: New nitrofurantoin monohyd/m-cryst [Macrobid] 100 mg capsule 100 mg PO Q12H 7 Days Qty: 14 0RF Rx Instructions: must administer with a meal/food [id number]-jxzxjyyuyvqyf-culw [Fioricet] 50-300-40 mg capsule 1 cap PO Q4-6H PRN (Reason: headache) Qty: 14 0RF No Action ibuprofen 600 mg tablet 600 mg PO Q8H PRN (Reason: pain) Qty: 60 0RF methocarbamol 750 mg tablet 750 mg PO TID Qty: 20 0RF dexamethasone 4 mg tablet 4 mg PO BID Qty: 10 0RF Referrals: Po,Adarsh Gregory MD [Primary Care Provider] - 3 days Print Language: Latvian
[2025-03-25 17:04] LABS: Appearance Urine Cloudy; Color Urine Yellow; Glucose Urine UA Negative (Negative); Leukocyte Esterase Urine Large (3+) (Negative); Nitrite Urine Positive (Negative); UMIC TRIGGER UACC YES; Urine Blood Small (1+) (Negative); Urine Ketones Negative (Negative); Urine Protein 30 (1+) mg/dL (Neg-Trace)
[2025-03-25 17:07] LABS: UPreg QC Valid YES; Urine Pregnancy NEGATIVE (NEGATIVE)
[2025-03-25 17:16] LABS: Bacteria Urine 2+ (None Seen); Granular Casts Urine Present; UACC Culture Trigger YES; WBC Clumps Urine Present; WBC Urine >50 /HPF (0-5)
[2025-03-25] MEDS: Butalb/Acetamin/Caff 50/325/40 TABLET 1 TAB PO (17:25)
[2025-03-25] MEDS: 0.9 % Sodium Chloride 1,000 ML 999 ML IV (17:26)
[2025-03-25] MEDS: Meclizine HCl 25 MG TABLET PO (17:26)
[2025-03-25] MEDS: diphenhydrAMINE HCL 50 MG/ML VIAL 12.5 MG IVPUSH (17:27)
[2025-03-25] MEDS: Metoclopramide HCl 10 MG/2 ML VIAL IVPUSH (17:29)
[2025-03-25 17:30] LABS: Alanine Aminotransferase 21 U/L (0-31); Alkaline Phosphatase 69 U/L (39-117); Aspartate Amino Transferase 16 U/L (5-31); Bilirubin Direct 0.3 mg/dL (0.0-0.5); Bilirubin Total 1.1 mg/dL (0.0-1.0); Magnesium 1.7 mg/dL (1.6-2.6); Total Protein 7.7 g/dL (6.5-8.0)
[2025-03-25 18:00] VITALS: BP 102/64; PULSE 86; RESP 18; TEMP 37.2; O2SAT 98
[2025-03-25] MEDS: iohexoL 350 MG/ML 100 ML INFUS..BTL IV (18:06)
[2025-03-25] MEDS: Nitrofurantoin Monohyd/M-Cryst 100 MG CAPSULE PO (18:09)
[2025-03-25 18:20] VITALS: BP 95/47; PULSE 69
[2025-03-25 18:22] VITALS: BP 105/64; PULSE 78
[2025-03-25 18:23] VITALS: BP 105/60; PULSE 72
[2025-03-25 19:01] VITALS: BP 105/60; PULSE 72; RESP 16; TEMP 36.6; O2SAT 97
== END 2025-03-25 19:07 | disposition home or self-care (01) ==
PROVIDERS: Physician Assistant; Emergency Provider Emergency Medicine; PCP Internal Medicine
DX: N39.0 Urinary tract infection, site not specified (principal); R55 Syncope and collapse; G43.109 Migraine with aura, not intractable, without status migrainosus; R42 Dizziness and giddiness; E78.00 Pure hypercholesterolemia, unspecified; Z79.899 Other long term (current) drug therapy; Z03.818 Encounter for observation for suspected exposure to other biological agents ruled out
CPT/HCPCS: 0241U; 70496; 70498; 80048; 80076; 81001; 81025; 83735; 85025; 87086; 87088; 87186; 96361; 96374; 96375; 99284; J1200; J2765; Q9967

== ENCOUNTER → 2025-03-25 17:03 | Outpatient (BNV) | payer BC, SELFPAY | PROVIDERS: Emergency Provider Emergency Medicine; PCP Internal Medicine; Visit Provider Radiology Diagnostic Radiology | DX: R51.9 Headache, unspecified (principal); R55 Syncope and collapse; R11.2 Nausea with vomiting, unspecified; M54.2 Cervicalgia | CPT/HCPCS: 70496; 70498 ==

== ENCOUNTER 2025-03-27 20:03 | Emergency (ER) | payer BC, SELFPAY ==
--- NOTE | ~2025-03-27 | CT_ITS ---
CLINICAL HISTORY: flank pain CT abdomen and pelvis without contrast Comparison: None Findings: No consolidation or effusion. Unremarkable gallbladder and solid organs. No urolithiasis. No bowel obstruction, pneumoperitoneum, or pneumatosis. Uterus and ovaries unremarkable. Normal appendix. Mild colonic diverticulosis without diverticulitis. No acute fracture. IMPRESSION: No acute findings. This document has been electronically signed by: Aleks Guerra MD on 03/28/2025 00:04:42
[2025-03-27 20:58] VITALS: BP 122/73; PULSE 104; RESP 18; TEMP 37; O2SAT 99; BMI 31.4
[2025-03-27 21:17] LABS: Hematocrit 36.8 % (37.0-47.0); Hemoglobin 12.9 g/dl (12.0-16.0); Mean Corpuscular HGB Conc 35.1 g/dl (31.0-35.0); Mean Corpuscular Hemoglobin 31.7 pg (27.0-33.0); Mean Corpuscular Volume 90.4 fL (80.0-98.0); Mean Platelet Volume 9.6 fL (9.4-12.3); Platelet Count 196 X10*3/uL (160-400); Red Blood Count 4.07 X10*6/uL (4.20-5.50); Red Cell Distribution Width 12.1 % (11.0-16.0); White Blood Count 11.4 X10*3/uL (4.8-10.8)
[2025-03-27 21:19] LABS: Appearance Urine Clear; Color Urine Yellow; Glucose Urine UA Negative (Negative); Leukocyte Esterase Urine Small (1+) (Negative); Nitrite Urine Negative (Negative); PH 6.5 (5.0-9.0); UMIC TRIGGER UACC YES; Urine Blood Negative (Negative); Urine Ketones Negative (Negative); Urine Protein Trace mg/dL (Neg-Trace)
[2025-03-27 21:22] LABS: Bacteria Urine None Seen (None Seen); Hyaline Casts Urine 0-2 /LPF (0-2); RBC Urine 0-2 /HPF (0-2); Squamous Epithelial Cell Urine 0-2 /HPF (0-2); UACC Culture Trigger YES
[2025-03-27 21:38] LABS: Alanine Aminotransferase 27 U/L (0-31); Alkaline Phosphatase 71 U/L (39-117); Anion Gap 12 (12-20); Aspartate Amino Transferase 22 U/L (5-31); Bilirubin Total 0.5 mg/dL (0.0-1.0); Blood Urea Nitrogen 6 mg/dL (9-16); Calcium 8.9 mg/dL (8.4-10.2); Carbon Dioxide 27 mmol/L (22-29); Chloride 101 mmol/L (96-108); Estimated Glomerular Filt Rate > 60; Glucose Random 94 mg/dL (60-115); Potassium 3.3 mmol/L (3.3-5.1); Sodium 137 mmol/L (135-145); Total Protein 7.9 g/dL (6.5-8.0)
--- NOTE | 2025-03-27 22:58 | ED_ITS ---
HPI - Female Genitourinary General Chief complaint: Urogenital-Female Stated complaint: severe lower back pain dx uti on 03/25 Time Seen by Provider: 03/27/25 22:57 Source: patient Mode of arrival: ambulatory Limitations: no limitations History of Present Illness ED Provider: HPI Narrative: Patient no significant past medical history apparently was seen here on 03/25 for dysuria frequency no diagnose as UTI started on Macrobid urine culture grew E coli sensitive to Macrobid but patient feeling worse now with more back pain and body aches and shivering no history of kidney stone in the past patient has been nauseated and vomited few times no cough no upper respiratory symptoms Related Data Previous Rx's ?Medication ?Instructions ?Recorded ibuprofen 600 mg tablet 600 mg PO Q8H PRN pain #60 tabs 01/01/24 dexamethasone 4 mg tablet 4 mg PO BID #10 tabs 03/22/25 methocarbamol 750 mg tablet 750 mg PO TID #20 tabs 03/22/25 [id number]-wsotzhnzmurle-gipyemku 1 cap PO Q4-6H PRN headache #14 03/25/25 50 mg-300 mg-40 mg capsule caps (Fioricet) nitrofurantoin 100 mg PO Q12H 7 days #14 caps 03/25/25 monohydrate/macrocrystals 100 mg capsule (Macrobid) Allergies Allergy/AdvReac Type Severity Reaction Status Date / Time No Known Allergies Allergy Verified 03/27/25 21:03 [No Known Allergies*] Review of Systems 2 Review of Systems: Yes all other systems are reviewed and are negative [facility] Past Medical History Medical History Hypercholesterolemia 30 weeks gestation of Concussion URI (upper respiratory infection) Strep throat Abdominal pain No pertinent past medical history Surgical History Previous section History of cyst of breast Family History Family History Mother Cervical cancer Father No problems noted. 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 at home: Yes (grandparents) Do you presently have visiting nurse or other home services: No Alcohol intake: never Comment: once a month 1-2 glass Patient Tobacco Use Status: Never used Tobacco Tobacco use type: Cigarette e-Cigarette/Vaping Use: Never Used Second Hand Smoke Exposure: No Use of substances other than those prescribed or required for medical reasons: No Advance Directives: No Advance Directives Information Provided: No service: No Current occupational status: employed Current occupational exposures/hazards: No Cognitive needs: No Hearing needs: No Vision needs: Yes Physical Exam 2 Vital Signs: Vital Signs: Last Vital Signs Temp 98.8 F 03/27/25 23:24 Pulse 104 H 03/27/25 20:58 Resp 18 03/27/25 20:58 BP 122/73 03/27/25 20:58 Pulse Ox 99 03/27/25 20:58 O2 Del Method Room Air 03/27/25 20:58 BMI result Body Mass Index 31.4 Appearance: Alert. Oriented X3. Febrile to touch 99.8 oral temperature Eyes: No pallor or icterus ENT: Pharynx normal. Oral Mucosa moist Neck: Normal inspection. Neck supple. CVS: Normal heart rate and rhythm. Pulses normal. Respiratory: No respiratory distress. Equal air entry bilateral, no wheezing/rales/rhonchi Abdomen: Soft and nontender. Bowel sounds are present, no mass palpable, bilateral CVA tenderness++ Skin: Skin warm and dry. Normal skin color. Normal skin turgor. Extremities: No lower extremity edema. No calf tenderness Neuro: Oriented X 3. No motor deficit. Medications Administered Discontinued Medications Generic Name Dose Route Start Last Admin Trade Name Freq PRN Reason Stop Dose Admin Sodium Chloride 1,000 mls @ 999 mls/hr 03/27/25 23:08 03/28/25 00:39 Ns IV 03/28/25 00:08 Infused .Q1H1M ONE Infusion Ketorolac Tromethamine 30 mg 03/27/25 23:08 03/27/25 23:21 Ketorolac Tromethamine 30 Mg/Ml Vial IVPUSH 03/27/25 23:09 30 mg ONCE ONE Administration Ondansetron HCl 4 mg 03/27/25 23:10 03/27/25 23:21 Ondansetron Hcl 4 Mg/2 Ml Vial IVPUSH 03/27/25 23:11 4 mg ONCE ONE Administration Medical Decision Making Medical Decision Making [facility] Narrative: Patient's UTI urine grew E coli sensitive to Macrobid which she has taken for last 2 days repeat urine is negative for bacteria and WBCs have decrease in amount comes here with diffuse back pain and low-grade fever case CT scan of the abdomen was negative for acute normal lactic acid level and decreased number of WBC count patient is feeling much better after IV fluids will discharge patient home advised to continue Macrobid Differential Diagnosis Differential Diagnoses: The differential diagnosis associated with the presentation includes Pyelonephritis/renal colic/dehydration/metabolic derangement Lab Data [facility] Lab Attestation statement: I reviewed the patient's lab results. 03/27/25 21:12 03/27/25 21:12 Labs: Lab Results 03/27/25 03/27/25 03/27/25 Range/Units 21:12 23:16 23:22 WBC 11.4 H (4.8-10.8) X10*3/uL RBC 4.07 L (4.20-5.50) X10*6/uL Hgb 12.9 (12.0-16.0) g/dl Hct 36.8 L (37.0-47.0) % MCV 90.4 (80.0-98.0) fL MCH 31.7 (27.0-33.0) pg MCHC 35.1 H (31.0-35.0) g/dl RDW 12.1 (11.0-16.0) % Plt Count 196 (160-400) X10*3/uL MPV 9.6 (9.4-12.3) fL Absolute Nucleated RBC 0.000 (0.0-0.012) X10*3/uL Nucleated RBC % (auto) 0.0 (0.0-0.2) /100WBC Sodium 137 (135-145) mmol/L Potassium 3.3 (3.3-5.1) mmol/L Chloride 101 (96-108) mmol/L Carbon Dioxide 27 (22-29) mmol/L Anion Gap 12 (12-20) BUN 6 L (9-16) mg/dL Creatinine 0.66 (0.5-1.4) mg/dL Estim Creat Clear Calc 107.0 Estimated GFR > 60 Random Glucose 94 (60-115) mg/dL Lactic Acid 0.9 (0.5-2.0) mmol/L Calcium 8.9 (8.4-10.2) mg/dL Total Bilirubin 0.5 (0.0-1.0) mg/dL AST 22 (5-31) U/L ALT 27 (0-31) U/L Alkaline Phosphatase 71 (39-117) U/L Total Protein 7.9 (6.5-8.0) g/dL Albumin 4.0 (3.5-5.0) g/dL Urine Color Yellow Urine Appearance Clear Urine pH 6.5 (5.0-9.0) Ur Specific [place] 1.010 (1.005-1.025) Urine Protein Trace (Neg-Trace) mg/dL Urine Glucose (UA) Negative (Negative) mg/dL Urine Ketones Negative (Negative) mg/dL Urine Blood Negative (Negative) Urine Nitrite Negative (Negative) Ur Leukocyte Esterase Small (1+) H (Negative) Urine RBC 0-2 (0-2) /HPF Urine WBC 6-10 H (0-5) /HPF Ur Squamous Epith Cells 0-2 (0-2) /HPF Urine Bacteria None Seen (None Seen) Hyaline Casts 0-2 (0-2) /LPF Urine Test NEGATIVE (NEGATIVE) Influenza Type A (PCR) NEGATIVE (Negative) Influenza Type B (PCR) NEGATIVE (Negative) RSV RNA Qual (PCR) NEGATIVE (Negative) SARS-CoV-2 RNA (RT-PCR) NEGATIVE (Negative) Independent Interpretation I performed an independent interpretation of an: CT Scan Radiology Impression Discussion of test interpretation with radiology: I have reviewed the radiologist's reading. Radiologist Impression: No acute Discharge Plan Discharge Clinical Impression: Urinary tract infection, Myalgia Patient Disposition: Home, Self-Care Instructions: Urinary Tract Infection in Women (DC), Musculoskeletal Pain (ED) Additional Instructions: Drink plenty of fluids Continue antibiotic as prescribed Tylenol/Motrin for pain Report to the ER if not better Prescriptions: No Action nitrofurantoin monohyd/m-cryst [Macrobid] 100 mg capsule 100 mg PO Q12H 7 Days Qty: 14 0RF Rx Instructions: must administer with a meal/food [id number]-jcdshtwhlccta-ewgz [Fioricet] 50-300-40 mg capsule 1 cap PO Q4-6H PRN (Reason: headache) Qty: 14 0RF ibuprofen 600 mg tablet 600 mg PO Q8H PRN (Reason: pain) Qty: 60 0RF methocarbamol 750 mg tablet 750 mg PO TID Qty: 20 0RF dexamethasone 4 mg tablet 4 mg PO BID Qty: 10 0RF Print Language: Kazakh
[2025-03-27] MEDS: 0.9 % Sodium Chloride 1,000 ML 999 ML IV (23:20)
[2025-03-27] MEDS: ondansetron HCL 4 MG/2 ML VIAL IVPUSH (23:21)
[2025-03-27] MEDS: Ketorolac Tromethamine 30 MG/ML VIAL IVPUSH (23:21)
[2025-03-27 23:24] VITALS: TEMP 37.1
[2025-03-27 23:26] LABS: UPreg QC Valid YES; Urine Pregnancy NEGATIVE (NEGATIVE)
[2025-03-27 23:36] LABS: Lactic Acid 0.9 mmol/L (0.5-2.0)
[2025-03-28 00:06] LABS: Influenza A PCR NEGATIVE (Negative); Influenza B PCR NEGATIVE (Negative); Resp Syncy Virus RNA Qual PCR NEGATIVE (Negative); SARS COV2 PCR INHOUSE NEGATIVE (Negative)
== END 2025-03-28 01:45 | disposition home or self-care (01) ==
PROVIDERS: Emergency Provider Internal Medicine; PCP Internal Medicine
DX: N39.0 Urinary tract infection, site not specified (principal); M79.10 Myalgia, unspecified site; M54.50 Low back pain, unspecified; R30.0 Dysuria; R11.2 Nausea with vomiting, unspecified; Z03.818 Encounter for observation for suspected exposure to other biological agents ruled out
CPT/HCPCS: 0241U; 36415; 74176; 80053; 81001; 81025; 83605; 85027; 87040; 87086; 96361; 96374; 96375; 99284; J1885; J2405

== ENCOUNTER → 2025-03-27 23:09 | Outpatient (BNV) | payer BC, SELFPAY | PROVIDERS: Emergency Provider Internal Medicine; PCP Internal Medicine; Visit Provider Radiology Diagnostic Radiology | DX: R10.9 Unspecified abdominal pain (principal) | CPT/HCPCS: 74176 ==

== ENCOUNTER 2025-05-10 12:42 | Outpatient (AMB) | payer BC, SELFPAY ==
[2025-05-10 12:43] VITALS: BP 100/68; PULSE 82; O2SAT 98; BMI 32.0
--- NOTE | 2025-05-10 12:43 | MHC.PC.OV ---
Vital Signs 05/10/25 12:43 Height 5 ft Weight 164 lb BMI 32.0 BP 100/68 Blood Pressure Location Lt brachial Position Sitting Pulse 82 Pulse Source Pulse Oximeter Pulse Oximetry (%) 98 Oxygen Delivery Method Room Air Intake Visit Reasons: 6mth f/u Supervisor Costuming Required: No Accompanied by: Self / Same As Patient Allergies No Known Allergies (No Known Allergies*) Allergy (Verified 05/10/25 12:44) Medication List - Last Reconciled 05/10/25 by Adarsh Jarvis MD ibuprofen 600 mg PO Q8H PRN trazodone 50 mg PO BEDTIME PRN Tobacco use date assessed: 05/10/25 Dental Screening Dental Screen Date: 05/10/25 Did you have a dental visit in the last 12 months?: Yes Did you have a dental problem in the last 6 months where you did not have access to dental care?: No Was dental information given to patient?: Patient has dentist HPI 6mth f/u HPI Details counselling in [place]. , having problem with sleeping. [facility] Medical History Hypercholesterolemia 30 weeks gestation of Concussion URI (upper respiratory infection) Strep throat Abdominal pain No pertinent past medical history Surgical History Previous section History of cyst of breast Family History Mother Cervical cancer Father No problems noted. 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 1. Little interest or pleasure in doing things: more than half the days 2. Feeling down, depressed, or hopeless: more than half the days 3. Trouble falling or staying asleep, or sleeping too much: more than half the days 4. Feeling tired or having little energy: more than half the days 5. Poor appetite or overeating: more than half the days 6. Feeling bad about yourself - or that you are a failure or have let yourself or your family down: not at all 7. Trouble concentrating on things, such as reading the newspaper or watching television: not at all 8. Moving or speaking so slowly that other people could have noticed. Or the opposite - being so fidgety or restless that you have been moving around a lot more than usual: not at all 9. Thoughts that you would be better off or of hurting yourself in some way: not at all Total score: 10 Source: Developed by Drs. Jose Ramon Maharaj, Ciara Putnam, Louis Monsivais and colleagues, with an educational marcus from [employer]. Thrive Questionnaire Date Thrive assessed: 05/10/25 I am a: Patient What is your living situation today?: I have a steady place to live Within the past 12 months, did the food you bought not last and you didn't have the money to get more?: I choose not to answer this question Within the past 12 months, did you worry whether your food would run out before you got money to buy more?: I choose not to answer this question Do you have trouble paying for medicines?: I choose not to answer this question Do you have trouble getting transportation to medical appointments?: I choose not to answer this question Do you have trouble paying your heating and electricity bill?: I choose not to answer this question Do you have trouble taking care of your child, family member or friend?: I choose not to answer this question Do you have trouble with day-to-day activities such as bathing, preparing meals, shopping, managing finances, etc.?: I choose not to answer this question Are you currently unemployed and looking for a job?: I choose not to answer this question Are you interested in more education?: I choose not to answer this question Please select the resources that you would like help with: None Currently or been in a relationship where the following occur: No concerns reported THRIVE Score: 0 AUDIT C Alcohol Use Questionnaire (AUDIT-C) 1. How often do you have a drink containing alcohol?: Never 3. How often do you have six or more drinks on one occasion?: Never Total Score: 0 EBONY-7 AMB Questionnaire EBONY-7 Date EBONY - 7 assessed: 05/10/25 Feeling nervous, anxious, or on edge: 1 = Several days Not being able to stop or control worryin = Several days Worrying too much about different things: 1 = Several days Trouble relaxin = Several days Being so restless that it is hard to sit still: 1 = Several days Becoming easily annoyed or irritable: 0 = Not at all Feeling afraid as if something awful might happen: 0 = Not at all Total EBONY-7 score (0-4 normal; 5-9 mild; 10-14 moderate; 15-21 severe): 5 Source: Developed by Drs. Jose Ramon Maharaj, Ciara Putnam, Louis Monsivais and colleagues, with an educational marcus from [employer]. Physical exam (Primary Care) Vital Signs: Last Vital Signs Pulse 82 05/10/25 12:43 BP 100/68 05/10/25 12:43 Pulse Ox 98 05/10/25 12:43 Oxygen Delivery Method Room Air 05/10/25 12:43 BMI result Body Mass Index 32.0 Tobacco/Smoking Status: Tobacco use Status Tobacco use date assessed 05/10/25 05/10/25 12:48 Patient Tobacco Use Status Never used Tobacco 05/10/25 12:48 Tobacco use type Cigarette 05/10/25 12:48 e-Cigarette/Vaping Use Never Used 05/10/25 12:48 PHQ-9: PHQ-9 Score PHQ-9: Total score 10 05/10/25 12:57 Thrive Assessment: Date of Thrive Assessment Date Thrive assessed 05/10/25 05/10/25 12:48 Currently or been in a relationship where the following occur: No concerns reported Const General: alert; No acute distress Eyes Conjunctivae: conjunctivae normal Resp Auscultation: clear to auscultation bilaterally Cardio Rate: regular rate Rhythm: regular rhythm GI Inspection: Yes normal to inspection Extrem General: Yes normal to inspection and No edema Coding Level of Care Code Est Pt Level 4 (45732) Diagnoses Hypercholesterolemia E78.00 Obesity (BMI 30-39.9) E66.9 Generalized anxiety disorder F41.1 Insomnia G47.00 Assessment & Plan Assessment & Plan (1) Hypercholesterolemia: Code(s): E78.00 - Pure hypercholesterolemia, unspecified Category: Medical Plan: Avoid fried foods, chicken skin, eggs, butter margarine, pastries and meat. Be it pork or beef they have a lot of cholesterol LDL goal of less than 130 and triglyceride of less than 150 (2) Obesity (BMI 30-39.9): Code(s): E66.9 - Obesity, unspecified Category: Medical Plan: Diet and exercise (3) Generalized anxiety disorder: Code(s): F41.1 - Generalized anxiety disorder Category: Medical Plan: Discussion about counseling and therapy (4) Insomnia: Code(s): G47.00 - Insomnia, unspecified Category: Medical Plan History of Present Illness The patient is a 34-year-old female presenting for a follow-up regarding panic attacks and cholesterol management. She has a history of hypercholesterolemia, with the last cholesterol test in December showing an LDL of 134 mg/dL. The goal is to reduce LDL to less than 130 mg/dL through diet and exercise. The patient also has a history of generalized anxiety disorder and major depressive disorder. She has been experiencing panic attacks and was last seen in December 2024 for these issues. Discussion included counseling and therapy options, and trazodone was prescribed to help with sleep disturbances associated with anxiety. The patient has a history of superficial thrombophlebitis and was recently diagnosed with a urinary tract infection after presenting with lower back pain. She was also seen in the ambulatory clinic for a trapezius muscle strain. Blood work done in March showed a normal blood count with mild leukocytosis and low normal potassium levels, while renal and liver functions were normal. The patient also has low vitamin D levels. Health Maintenance - LDL cholesterol management with a goal of less than 130 mg/dL - Diet and exercise recommendations for cholesterol management Social History Review of Systems - Psychiatric: Reports panic attacks and anxiety. Physical Exam Results - Labs: Normal blood count with mild leukocytosis, low normal potassium, normal renal and liver function tests. - Cholesterol: LDL of 134 mg/dL as of December. - Vitamin D: Low levels detected. Plan The management plan for hypercholesterolemia includes achieving an LDL cholesterol goal of less than 130 mg/dL through dietary modifications and increased physical activity. For anxiety and sleep disturbances, trazodone has been prescribed to be taken at bedtime, with a follow-up to assess its effectiveness. The patient is advised to continue monitoring for any symptoms of urinary tract infection and to seek medical attention if symptoms persist or worsen. Counseling and therapy options were discussed to address anxiety and depressive symptoms, emphasizing the importance of mental health support. Patient was informed and verbally consented to the use of an ambient scribe for clinic note documentation during this visit. Discussion Notes I discussed with the patient the importance of managing her cholesterol levels through diet and exercise, aiming for an LDL goal of less than 130 mg/dL. We also talked about the use of trazodone for her anxiety-related sleep disturbances and the potential benefits of counseling and therapy for her mental health conditions. Patient Instructions - Take trazodone at bedtime as prescribed. - Follow a diet and exercise plan to help lower cholesterol levels. - Monitor for symptoms of urinary tract infection and seek medical attention if needed. - Consider counseling or therapy for anxiety and depression support. Medications: New trazodone 50 mg PO BEDTIME PRN 30 tabs 1RF sleep G47.00 - Insomnia, unspecified
== END 2025-05-10 13:31 | disposition home or self-care (01) ==
LOC: HO.HMCH 12:43
PROVIDERS: PCP Internal Medicine; Visit Provider Internal Medicine
DX: E78.00 Pure hypercholesterolemia, unspecified (principal); E66.9 Obesity, unspecified; Z68.32 Body mass index [BMI] 32.0-32.9, adult; F41.1 Generalized anxiety disorder; G47.00 Insomnia, unspecified

== ENCOUNTER → 2025-05-10 12:42 | Outpatient (BNVA) | payer BC, SELFPAY | PROVIDERS: PCP Internal Medicine; Visit Provider Internal Medicine | DX: Z13.89 Encounter for screening for other disorder (principal) ==

== ENCOUNTER 2025-05-15 08:49 | Outpatient (AMB) | payer BC, SELFPAY ==
--- NOTE | 2025-05-15 08:58 | AM.OFFVISNUR ---
Intake Visit Reasons: TB Implant Allergies No Known Allergies (No Known Allergies*) Allergy (Verified 05/10/25 12:44) Office Meds tuberculin PPD 5 tub. unit/0.1 mL intradermal injection solution Performing Provider: Adarsh Jarvis MD [place] [place] [facility] Administered by: Tory Eldridge LPN on 05/15/25 08:58 Dose Route Admin Location Dispensed Lot Number Expiration Date [facility] Tube Splicer 0.1 mL intradermal left forearm 0.1 mL [id number] 12/22/27 [id number] [employer] Total Dispensed Waste 0.1 mL 0 % Assessment & Plan Assessment & Plan Orders: Orders AMB PPD Planted Today Z11.1 - Encounter for screening for respiratory tuberculosis Coding
== END 2025-05-15 08:59 | disposition home or self-care (01) ==
LOC: HO.HMCH 08:50
PROVIDERS: PCP Internal Medicine; Visit Provider Internal Medicine
DX: Z11.1 Encounter for screening for respiratory tuberculosis (principal)

== ENCOUNTER → 2025-05-15 08:49 | Outpatient (BNVA) | payer BC, SELFPAY | PROVIDERS: PCP Internal Medicine; Visit Provider Internal Medicine | DX: Z11.1 Encounter for screening for respiratory tuberculosis (principal) | CPT/HCPCS: 86580 ==

== ENCOUNTER 2025-09-08 15:34 | Outpatient (AMB) | payer BC, SELFPAY ==
--- NOTE | 2025-09-08 15:38 | MHC.PC.OV ---
Vital Signs 09/08/25 15:39 Height 5 ft Weight 161 lb BMI 31.4 BP 122/68 Blood Pressure Location Lt brachial Position Sitting Pulse 68 Pulse Source Pulse Oximeter Temp 97.3 F Temp Source Temporal Artery Scan Pulse Oximetry (%) 99 Oxygen Delivery Method Room Air Intake Visit Reasons: insomnia Intake Note: Patient is here to follow up on Insomnia. Broadcast Correspondent Required: No Specialty Cook: Not Required per policy Accompanied by: Self / Same As Patient Allergies No Known Allergies (No Known Allergies*) Allergy (Verified 09/08/25 15:39) Medication List - Last Reconciled 09/08/25 by Adarsh Jarvis MD ibuprofen 600 mg PO Q8H PRN tramadol 50 mg PO DAILY Tobacco use date assessed: 09/08/25 Dental Screening Dental Screen Date: 05/10/25 [facility] Medical History Hypercholesterolemia 30 weeks gestation of Concussion URI (upper respiratory infection) Strep throat Abdominal pain No pertinent past medical history Surgical History Previous section History of cyst of breast Family History Mother Cervical cancer Father No problems noted. 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 wound care rn to a significant other at home: Yes (grandparents) Do you presently have visiting nurse or other home services: No Alcohol intake: never Comment: once a month 1-2 glass Patient Tobacco Use Status: Never used Tobacco Tobacco use type: Cigarette e-Cigarette/Vaping Use: Never Used Second Hand Smoke Exposure: No service: No Current occupational status: employed Current occupational exposures/hazards: No Cognitive needs: No Hearing needs: No Vision needs: Yes Questionnaire Thrive Questionnaire Date Thrive assessed: 05/10/25 I am a: Patient What is your living situation today?: I have a steady place to live Within the past 12 months, did the food you bought not last and you didn't have the money to get more?: I choose not to answer this question Within the past 12 months, did you worry whether your food would run out before you got money to buy more?: I choose not to answer this question Do you have trouble paying for medicines?: I choose not to answer this question Do you have trouble getting transportation to medical appointments?: I choose not to answer this question Do you have trouble paying your heating and electricity bill?: I choose not to answer this question Do you have trouble taking care of your child, family member or friend?: I choose not to answer this question Do you have trouble with day-to-day activities such as bathing, preparing meals, shopping, managing finances, etc.?: I choose not to answer this question Are you currently unemployed and looking for a job?: I choose not to answer this question Are you interested in more education?: I choose not to answer this question Please select the resources that you would like help with: None Currently or been in a relationship where the following occur: No concerns reported THRIVE Score: 0 EBONY-7 AMB Questionnaire EBONY-7 Date EBONY - 7 assessed: 05/10/25 Source: Developed by Drs. Jose Ramon Maharaj, Ciara Putnam, Louis Monsivais and colleagues, with an educational marcus from [employer]. Physical exam (Primary Care) Vital Signs: Last Vital Signs Temp 97.3 F 09/08/25 15:39 Pulse 68 09/08/25 15:39 BP 122/68 09/08/25 15:39 Pulse Ox 99 09/08/25 15:39 Oxygen Delivery Method Room Air 09/08/25 15:39 BMI result Body Mass Index 31.4 Tobacco/Smoking Status: Tobacco use Status Tobacco use date assessed 09/08/25 09/08/25 15:45 Patient Tobacco Use Status Never used Tobacco 09/08/25 15:45 Tobacco use type Cigarette 09/08/25 15:45 e-Cigarette/Vaping Use Never Used 09/08/25 15:45 Thrive Assessment: Date of Thrive Assessment Date Thrive assessed 05/10/25 09/08/25 15:45 Currently or been in a relationship where the following occur: No concerns reported Const General: alert; No acute distress Eyes Conjunctivae: conjunctivae normal Resp Auscultation: clear to auscultation bilaterally Cardio Rate: regular rate Rhythm: regular rhythm GI Inspection: Yes normal to inspection Extrem General: Yes normal to inspection and No edema Office Procedures Flu Questionnaire Does the patient have a severe egg allergy?: No Does the patient have severe life threatening allergies?: No Does the patient have a fever or illness today?: No Has the patient ever had Guillain-[place] Syndrome?: No Has the patient ever had any past reaction to a flu shot?: No Immunizations Fluarix [id number] (PF) 45 mcg (15 mcg x 3)/0.5 mL IM syringe Performing Provider: Adarsh Jarvis MD [facility] [place] Administered by: VERONIQUE Hsu on 09/08/25 16:16 Dose Route Admin Location Dispensed Lot Number Expiration Date [facility] Clothing Sales Assistant 0.5 mL IM Left Deltoid 0.5 mL [id number] 05/22/26 [id number] [employer] VIS Given Date VIS Provided VIS Publication Date 09/08/25 Single Vaccine 24 Eligibility Eligibility Date Funding Source Not [facility] Eligible 09/08/25 Private Coding Level of Care Code Est Pt Level 4 (27481) Diagnoses Hypercholesterolemia E78.00 Panic attack F41.0 Obesity (BMI 30-39.9) E66.9 Insomnia G47.00 Low back pain M54.50 Assessment & Plan Assessment & Plan (1) Hypercholesterolemia: Code(s): E78.00 - Pure hypercholesterolemia, unspecified Category: Medical Plan: Avoid fried foods, chicken skin, eggs, butter margarine, pastries and meat. Be it pork or beef they have a lot of cholesterol LDL goal of less than 130 and triglyceride of less than 150 (2) Panic attack: Comment: counselling once a week Code(s): F41.0 - Panic disorder [episodic paroxysmal anxiety] Category: Medical Plan: Continue with counseling (3) Obesity (BMI 30-39.9): Code(s): E66.9 - Obesity, unspecified Category: Medical Plan: diet and exercise (4) Insomnia: Code(s): G47.00 - Insomnia, unspecified Category: Medical Plan: Patient is advised to eat healthy, keep well hydrated, keep active and have adequate sleep. (5) Low back pain: Code(s): M54.50 - Low back pain, unspecified Category: Medical Plan History of Present Illness The patient is a 34-year-old female presenting for follow-up of depression, generalized anxiety disorder with panic attacks, hypercholesterolemia, and lower back pain. The patient has a history of depression and generalized anxiety disorder with panic attacks, which have been managed with therapy and medication in the past. She reports that she had to stop seeing her therapist due to personal commitments, which has made managing her anxiety more challenging. The patient also has a history of hypercholesterolemia, with the last LDL cholesterol level recorded at 131 mg/dL in December. She is currently following a cholesterol management plan with a goal of reducing LDL to less than 130 mg/dL and triglycerides to less than 150 mg/dL through diet, exercise, and counseling. The patient reports experiencing lower back pain, particularly in the coccyx region, which has been persistent for almost three weeks. The pain radiates downwards and is exacerbated by her active lifestyle and work commitments. She has been using ibuprofen, Tylenol, and heating pads for relief, but these have provided limited benefit. The patient also reports allergic rhinitis with asthma exacerbations, particularly during the fall season, which she manages with daily antihistamines. 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 - Family Status: Mother of two children, involved in their daily activities and school routines - Exercise: Attempts to stay active despite back pain, uses stretching and relaxation techniques Review of Systems - Musculoskeletal: Reports lower back pain radiating to the coccyx region, persistent for three weeks - Respiratory: Reports asthma exacerbations during fall, managed with antihistamines - Neurological: Denies any neurological deficits Physical Exam - Cardiovascular: Heart auscultation performed, no abnormalities noted - Respiratory: Lung auscultation performed, no abnormalities noted - Musculoskeletal: Examination of lower back, tenderness noted in the coccyx region - Neurological: Neurological examination performed, no deficits observed Results - Labs: Mild leukocytosis noted in March, normal platelet count, mild hypokalemia, normal renal and liver function - Cholesterol: LDL cholesterol level of 131 mg/dL recorded in December Plan Patient was informed and verbally consented to the use of an ambient scribe for clinic note documentation during this visit. 1. Depression The patient has a history of depression, which has been managed with therapy and medication in the past. She has stopped seeing her therapist due to personal commitments, which has made managing her symptoms more challenging. It is recommended to resume therapy sessions to better manage her depression. 2. Generalized Anxiety Disorder With Panic Attacks The patient reports generalized anxiety disorder with panic attacks, previously managed with therapy. Due to personal commitments, she has stopped therapy, which has increased her anxiety levels. Resuming therapy is advised to help manage her anxiety and panic attacks. 3. Hypercholesterolemia The patient is following a cholesterol management plan with a goal of reducing LDL to less than 130 mg/dL and triglycerides to less than 150 mg/dL through diet, exercise, and counseling. Continued adherence to this plan is advised. 4. Obesity The patient is obese, which may contribute to her lower back pain. Weight management through diet and exercise is recommended to alleviate symptoms and improve overall health. 5. Lower Back Pain The patient reports lower back pain, particularly in the coccyx region, persistent for almost three weeks. An x-ray is recommended to further evaluate the cause of the pain. In the meantime, she should continue using ibuprofen, Tylenol, and heating pads for relief. 6. Allergic Rhinitis With Asthma Exacerbation The patient experiences asthma exacerbations during the fall, managed with daily antihistamines. Continued use of antihistamines is recommended to manage symptoms. Discussion Notes During the visit, we discussed the patient's ongoing management of depression and anxiety, emphasizing the importance of resuming therapy sessions. We reviewed her cholesterol management plan, aiming for an LDL goal of less than 130 mg/dL. We also addressed her lower back pain, recommending an x-ray for further evaluation and continued use of pain relief measures. Additionally, we discussed her asthma exacerbations and the need for continued antihistamine use. A flu vaccination was also planned as part of her preventative care. Patient Instructions - Resume therapy sessions to manage depression and anxiety. - Continue cholesterol management plan with diet, exercise, and counseling. - Use ibuprofen, Tylenol, and heating pads for lower back pain relief. - Schedule an x-ray for further evaluation of lower back pain. - Continue daily antihistamines to manage asthma exacerbations. - Receive flu vaccination as part of preventative care. Orders: Orders XR lumbar spine 2-3V Today M54.50 - Low back pain, unspecified Influenza [id number] Immunization Today Z23 - Encounter for immunization Medications: New tramadol 50 mg PO DAILY 7 tabs 0RF M54.50 - Low back pain, unspecified
[2025-09-08 15:39] VITALS: BP 122/68; PULSE 68; TEMP 36.3; O2SAT 99; BMI 31.4
--- OUTSIDE RECORDS SUMMARY | 2025-09-08 18:00 | XMS_ITS ---
Author Name [facility] Organization Unknown Care Team Organization Name Specialty Phone Email Start Date End Da te Office of the Outside Industrial Sales Representative (OSC) 10/07/2024
--- OUTSIDE RECORDS SUMMARY | 2025-09-08 18:00 | XMS_ITS | Clinical Summary ---
Author Organization [facility] [address] [facility] Address [address] [place] [phone] Phone Care Team Providers Care Leather Case Finisher Name Role Phone Physician, No Pcp Primary [...] -superficial thrombus- NO DVT Anticoagulated per initial [facility] recommendtion with Lovenox 40 mg SQ BID, no need for transfer Hematology consultation at [place] 04/14/22 - decrease Lovenox to daily, stop 04/22/22, then warm compresses and elevation. Repeat ultrasound demonstrated improvement. They will see her back in April for PP planning. MFM appointment scheduled 04/22- they called and cancelled given it was superficial and not planning on staying on roasterman therapeutic anticoagulation. Last Assessment & Plan: No need to transfer to [facility] due to stopping therapuetic anticoagulation and only superficail vein thrombosis. Patient will continue appts here Edema during , second trimester 022 Overview (09/12/2024): 02/18/2022- LE edema to left leg, per pt report went to [facility] and DVT was ruled out. Doppler not available for review. LE edema resolved with elevation of feet Obesity in 11/19/2021 Overview (09/12/2024): BMI- 30.2 HgbA1C at initial labs One hour GTT in first trimester Repeat GTT 24-28 weeks if early is normal Level 2 Survey (at [facility] for BMI >40) Refer to nutrition for BMI >40 Growth US at 32 and 36 weeks for for BMI >40 Weekly NST at 32 weeks for BMI >45 Screen for ALESSANDRO (using tool) and refer for sleep study if positive Anesthesia consult for pre- BMI >45 or >50 lb weight gain Transfer to [facility] for pre- BMI >50 DVT prophylaxis- Lovenox if CS and BMI >35 Migraine headache 01/14/2021 Abnormal Pap smear of cervix 03/25/2018 Encounters Date Type Department Care Team Description 08/22/2025 Telephone Obstetrics and Gynecology - [address] [phone] Carson, Anjali L, CNM from Last 3 Months Immunizations Immunization Administration Dates Next Due DTaP (Infanrix) 6wks to less than 7yo ,10/14/1993,06/24/1993,1992 XRhD-ZOA-CYH (Pentacel) 2mo to less than 5yo 02/06/1994,10/14/1993,06/24/1993,1992 HPV, Quadrivalent 12/16/2007,08/04/2007,03/30/20 07 Hepatitis B (Soeyhab-X-Vpvuh , Recombivax HB-Adult) 19yo and older 09/24/2016,02/27/2016,01/24/2016,1995,01/29/1996,01/01/1996 [...] Sexual Orientation Not on file Obstetrics History * This document contains information received from the source organization and may not represent a complete record from that organization. Para Term AB IAB SAB Ectopic Multiple Livin g Live Births 4 2 2 2 2 Date Outcome GA Total Labor Labor/2nd/3rd Weight Sex Type Anes PTL Mylene A1 A5 Name Clin 2011 2012 2017 Term 40w 3d 3289 g (116 oz) F Vag-S pont Epidur al Livin g 8 9 Mariposa Rhodes [facility] Delivery Location:[facility] 2021 Term 39w 3d F CS-Un spec Livin g Delivery Location:[facility] Last Filed Vital Signs Vital Sign [...] 10/02/2023 11:22 AM EST Plan of Treatment Upcoming Encounters Date Type Department Care Team (Late st Contact Info) Description 10/25/2025 8:45 AM EST Office Visit Obstetrics & Gynecology - [address] [phone] Anjali Carson, CNM [address] [facility] [place] [phone] Health Maintenance Due Date Last Done Comments Social Influencers of Health Screening 10/26/2022 Depression Screening 11/23/2024 COVID-19 Vaccine ( season) 2025 08/23/2021, 08/02/2021 Influenza Vaccine (#1) 2025 , 09/24/2023, 10/13/2022, Additional history exists Cervical Cancer Screening: HPV 09/02/2026 09/02/2021 Cholesterol Screening (Lipid Panel) 10/09/2026 10/09/2021 DTaP,Tdap,and Td Vaccines (9 - Td or Tdap) 03/18/2032 03/18/2022, 08/02/2018, 08/15/2014, Additional history exists RSV Immunization Adult Patients (1 - 1-dose 75+ series) 2065 HIB Vaccines Completed 02/06/1994, 09/24, 06/24/1993, Additional history exists MMR Vaccines Completed 02/06/1994, 01/22/1993 IPV Vaccines Completed 01/08/1995, 01/21, 10/14/1993, Additional history exists HPV Vaccines Completed 12/16/2007, 07/24, 03/30/2007 Hepatitis B Vaccines Completed 09/24/2016, 02/27/2016, 01/24/2016, Additional history exists HIV Screening Completed 11/04/2021 Hepatitis C Screening Completed 11/04/2021 Hepatitis A Vaccines Aged Out No long er eligible based on patient's age to complete this topic Meningococcal ACWY Vaccine Aged Out N o longer eligible based on patient's age to complete this topic Meningococcal B Vaccine Aged Out No l onger eligible based on patient's age to complete this topic Pneumococcal Vaccine: Pediatrics (0 to 5 Years) and At-Risk Patients (6 to 49 Years) Aged Out No longer eligible based [...] Health Maintenance Results * HIV Screening (11/04/2021) [facility] HIV Screening abstracted [facility] Provider HEALTH MAINTENANCE Final Result * Hepatitis C Screening (11/04/2021) [facility] Hepatitis C Screening abstracted [facility] Provider HEALTH MAINTENANCE Final Result * (ABNORMAL) Lipid panel (10/09/2021) [facility] LDL/HDL Ratio 4 0 - 4 Triglycerides 139 0 - 150 mg/dL Cholesterol 188 0 - 200 mg/dL HDL 49 >=40 mg/dL LDL Cholesterol 112(A) 0 - 100 mg/dL Blood Venous blood specimen / Unknown Result [facility] Provider LAB BLOOD ORDERABLES Isabella l Result * Cervical Cancer Screening: HPV (09/02/2021) Pathologist [facility] Cervical Cancer Screening: HPV negative,a bstracted [facility] Provider HEALTH MAINTENANCE Final Result from Last 3 Months or Most Recently Relevant to Health Maintenance Insurance [place]) Care Teams Leather Case Finisher Relationship Specialty Start Date End Date Physician, No Pcp PCP - General 10/28/24
== END 2025-09-08 16:30 | disposition home or self-care (01) ==
PROVIDERS: PCP Internal Medicine; Visit Provider Internal Medicine
DX: E78.00 Pure hypercholesterolemia, unspecified (principal); F41.0 Panic disorder [episodic paroxysmal anxiety]; E66.9 Obesity, unspecified; Z68.31 Body mass index [BMI] 31.0-31.9, adult; G47.00 Insomnia, unspecified; M54.50 Low back pain, unspecified; Z23 Encounter for immunization

== ENCOUNTER → 2025-09-08 15:34 | Outpatient (BNVA) | payer BC, SELFPAY | PROVIDERS: PCP Internal Medicine; Visit Provider Internal Medicine | DX: F41.0 Panic disorder [episodic paroxysmal anxiety] (principal); E78.00 Pure hypercholesterolemia, unspecified; E66.9 Obesity, unspecified; G47.00 Insomnia, unspecified; M54.50 Low back pain, unspecified; J45.901 Unspecified asthma with (acute) exacerbation; Z23 Encounter for immunization | CPT/HCPCS: 90471; 90656 ==

== ENCOUNTER 2025-09-11 16:19 | Outpatient (REF) | payer BC, SELFPAY ==
--- NOTE | ~2025-09-11 | XR_ITS ---
EXAMINATION: XR LUMBOSACRAL SPINE CLINICAL INFORMATION: M54.50 - Low back pain, unspecified COMPARISON: CT abdomen and pelvis 03/27/2025 TECHNIQUE: Three views of the lumbosacral spine. FINDINGS: 5 lumbar type vertebral bodies. Small chronic appearing ossification along the anterior aspect of the L5 superior endplate, unchanged from the prior CT. This could reflect sequela of limbus vertebrae versus remote trauma. Otherwise, no evidence of acute fracture or spondylolisthesis.. Mild L5-S1 disc space narrowing. No suspicious bony lesions. Bilateral SI joints are symmetric. No suspicious soft tissue calcifications. XR/XR lumbar spine 2-3V IMPRESSION: Chronic appearing small ossification along the anterior aspect of the L5 superior endplate. No radiographic evidence of acute fracture. Mild L5-S1 disc degeneration. Electronically signed by: Aram Araiza MD 09/12/2025 04:56 PM EDT
--- OUTSIDE RECORDS SUMMARY | 2025-09-11 20:37 | XMS_ITS | Clinical Summary ---
Author Organization [facility] [address] [facility] Address [address] [place] [phone] Phone Care Team Providers Care Cabinet Assembler Name Role Phone Physician, No Pcp Primary [...] -superficial thrombus- NO DVT Anticoagulated per initial [facility] recommendtion with Lovenox 40 mg SQ BID, no need for transfer Hematology consultation at [place] 04/14/22 - decrease Lovenox to daily, stop 04/22/22, then warm compresses and elevation. Repeat ultrasound demonstrated improvement. They will see her back in April for PP planning. MFM appointment scheduled 04/22- they called and cancelled given it was superficial and not planning on staying on draft roller picker therapeutic anticoagulation. Last Assessment & Plan: No need to transfer to [facility] due to stopping therapuetic anticoagulation and only superficail vein thrombosis. Patient will continue appts here Edema during , second trimester 022 Overview (09/12/2024): 02/18/2022- LE edema to left leg, per pt report went [facility] and DVT was ruled out. Doppler not available for review. LE edema resolved with elevation of feet Obesity in 11/19/2021 Overview (09/12/2024): BMI- 30.2 HgbA1C at initial labs One hour GTT in first trimester Repeat GTT 24-28 weeks if early is normal Level 2 Survey (at [facility] for BMI >40) Refer to nutrition for BMI >40 Growth US at 32 and 36 weeks for for BMI >40 Weekly NST at 32 weeks for BMI >45 Screen for ALESSANDRO (using tool) and refer for sleep study if positive Anesthesia consult for pre- BMI >45 or >50 lb weight gain Transfer to [facility] for pre- BMI >50 DVT prophylaxis- Lovenox if CS and BMI >35 Migraine headache 01/14/2021 Abnormal Pap smear of cervix 03/25/2018 Encounters Date Type Department Care Team Description 08/22/2025 Telephone Obstetrics and Gynecology - [address] [phone] Carson, Anjali L, CNM from Last 3 Months Immunizations Immunization Administration Dates Next Due DTaP (Infanrix) 6wks to less than 7yo ,10/14/1993,06/24/1993,1992 VLjW-APE-ZTM (Pentacel) 2mo to less than 5yo 02/06/1994,10/14/1993,06/24/1993,1992 HPV, Quadrivalent 12/16/2007,08/04/2007,03/30/20 07 Hepatitis B (Gqhupkg-H-Zduab , Recombivax HB-Adult) 19yo and older 09/24/2016,02/27/2016,01/24/2016,1995,01/29/1996,01/01/1996 [...] al Livin g 8 9 [address] Rhodes [facility] Delivery Location:[facility] 2021 Term 39w 3d F CS-Un spec Livin g Delivery Location:[facility] Last Filed Vital Signs Vital Sign Reading [...] EST Office Visit Obstetrics & Gynecology - [address] [phone] Anjali Carson, CNM [address] [place] [phone] Health Maintenance Due Date Last Done Comments [...] Health Maintenance Results * HIV Screening (11/04/2021) [facility] HIV Screening abstracted [facility] Provider HEALTH MAINTENANCE Final Result * Hepatitis C Screening (11/04/2021) [facility] Hepatitis C Screening abstracted [facility] Provider HEALTH MAINTENANCE Final Result * (ABNORMAL) Lipid panel (10/09/2021) [facility] LDL/HDL Ratio 4 0 - 4 Triglycerides 139 0 - 150 mg/dL Cholesterol 188 0 - 200 mg/dL HDL 49 >=40 mg/dL LDL Cholesterol 112(A) 0 - 100 mg/dL Blood Venous blood specimen / Unknown Result [facility] Provider LAB BLOOD ORDERABLES Isabella l Result * Cervical Cancer Screening: HPV (09/02/2021) Pathologist [facility] Cervical Cancer Screening: HPV negative,a bstracted [facility] Provider HEALTH MAINTENANCE Final Result from Last 3 Months or Most Recently Relevant to Health Maintenance Insurance [place]) Care Teams Cabinet Assembler Relationship Specialty Start Date End Date Physician, No Pcp PCP - General 10/28/24
== END 2025-09-11 16:20 | disposition home or self-care (01) ==
LOC: HO.XRAY 16:19
PROVIDERS: PCP Internal Medicine; Visit Provider Internal Medicine
DX: M54.50 Low back pain, unspecified (principal)
CPT/HCPCS: 72100

== ENCOUNTER → 2025-09-11 16:25 | Outpatient (BNV) | payer BC, SELFPAY | PROVIDERS: PCP Internal Medicine; Visit Provider Radiology Diagnostic Ultrasound | DX: M51.370 Other intervertebral disc degeneration, lumbosacral region with discogenic back pain only (principal) | CPT/HCPCS: 72100 ==

== ENCOUNTER 2025-11-03 10:57 | Outpatient (AMB) | payer BC, SELFPAY ==
--- NOTE | 2025-11-03 11:07 | A.OFFPC_ITS ---
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 Required: No Accompanied by: Self / Same As Patient Allergies No Known Allergies (No Known Allergies*) Allergy (Verified 11/03/25 11:08) Medication List - Last Reconciled 11/03/25 by Marilee Stubbs MD naproxen 500 mg PO BID Tobacco use date assessed: 11/03/25 Dental Screening Dental Screen Date: 11/03/25 Did you have a dental visit in the last 12 months?: Yes Did you have a dental problem in the last 6 months where you did not have access to dental care?: No Was dental information given to patient?: Patient has dentist HPI HPI Comments History of Present Illness Details Patient is a 34-year-old female with history of depression, generalized anxiety disorder with panic attacks, hypercholesterolemia who presents today for annual physical exam and complaints of chronic low back pain. Patient was seen in clinic on 09/08/2025 for complaints of low back pain, had X ray lumbar spine that showed mild L5-S1 disc degeneration, prescribed tramadol 50 mg daily for 7 days, but discontinued it due to side effects of headaches and fatigue. Today, she reports experiencing intermittent, severe low back pain for a few months, with a pain score of 8-9 out of 10, radiating down both legs and is associated with tingling. She denies bowel or bladder incontinence. 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 She has ibuprofen 800 mg that she use as needed for headaches but has not used it for back pain. Denies any history of falls or trauma or heavy lifting. She reports previous job as a [employer] for few years that involved a lot of heavy pushing and lifting, that she attributes the back pain to. Reports history of superficial thrombophlebitis in both legs during her in 2021, for which she received injections. She notes that the affected areas, which have bump intermittently feel warm, appear larger and become painful. Regarding Healthcare maintenance: Up-to-date with flu vaccine, Tdap (02/2022) Pap smear 08/2021: NILM, neg HPV - reports had Pap smear done today 11/03/[address] [facility] Medical History Hypercholesterolemia 30 weeks gestation of Concussion URI (upper respiratory infection) Strep throat Abdominal pain No pertinent past medical history Surgical History Previous section History of cyst of breast Family History Mother Cervical cancer Father No problems noted. 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 zoo caretaker to a significant other at home: Yes (grandparents) Do you presently have visiting nurse or other home services: No Alcohol intake: never Comment: once a month 1-2 glass Patient Tobacco Use Status: Never used Tobacco Tobacco use type: Cigarette e-Cigarette/Vaping Use: Never Used Second Hand Smoke Exposure: No service: No Current occupational status: employed Current occupational exposures/hazards: No Cognitive needs: No Hearing needs: No Vision needs: Yes Questionnaire Thrive Questionnaire Date Thrive assessed: 11/03/25 I am a: Patient What is your living situation today?: I have a steady place to live Within the past 12 months, did the food you bought not last and you didn't have the money to get more?: I choose not to answer this question Within the past 12 months, did you worry whether your food would run out before you got money to buy more?: I choose not to answer this question Do you have trouble paying for medicines?: I choose not to answer this question Do you have trouble getting transportation to medical appointments?: I choose not to answer this question Do you have trouble paying your heating and electricity bill?: I choose not to answer this question Do you have trouble taking care of your child, family member or friend?: I choose not to answer this question Do you have trouble with day-to-day activities such as bathing, preparing meals, shopping, managing finances, etc.?: I choose not to answer this question Are you currently unemployed and looking for a job?: I choose not to answer this question Are you interested in more education?: I choose not to answer this question Please select the resources that you would like help with: None Currently or been in a relationship where the following occur: No concerns reported THRIVE Score: 0 EBONY-7 AMB Questionnaire EBONY-7 Date EBONY - 7 assessed: 05/10/25 Source: Developed by Drs. Jose Ramon Maharaj, Ciara Putnam, Louis Monsivais and colleagues, with an educational marcus from [employer]. Physical exam (Primary Care) Vital Signs: Last Vital Signs Pulse 75 11/03/25 11:08 Resp 18 11/03/25 11:08 BP 98/64 11/03/25 11:08 Pulse Ox 98 11/03/25 11:08 Oxygen Delivery Method Room Air 11/03/25 11:08 General: Well-appearing, alert, oriented ?3, in no acute distress. HEENT: Normocephalic, atraumatic, PERRLA, EOMI, no scleral icterus. External ea rs normal, tympanic membranes intact bilaterally, no erythema or effusion. Nares patent, normal mucosa pink, no discharge. No oral lesions, or pharyngeal erythema. Neck Supple. No carotid bruits. Cardiovascular: RRR, S1-S2 appreciated, no murmurs, rubs or gallops. Respiratory: Lungs clear to auscultation bilaterally, no wheezes, rales or rhonchi. Abdomen: Soft, nontender, nondistended. Normoactive bowel sounds. MSK: Normal range of motion in all extremities, no joint swelling or deformity. Back exam: Range of motion intact, negative straight leg raise test bilaterally. Skin: Intact, no rashes or lesions Neurologic: Alert and oriented X3, cranial nerves II?XII grossly intact, sensation and strength intact in bilateral lower and upper extremities. Psychiatry: Normal mood and affect. Appropriate behavior, good eye contact. BMI result Body Mass Index 31.3 Tobacco/Smoking Status: Tobacco use Status Tobacco use date assessed 11/03/25 11/03/25 11:10 Patient Tobacco Use Status Never used Tobacco 11/03/25 11:10 Tobacco use type Cigarette 11/03/25 11:10 e-Cigarette/Vaping Use Never Used 11/03/25 11:10 Thrive Assessment: Date of Thrive Assessment Date Thrive assessed 11/03/25 11/03/25 11:10 Currently or been in a relationship where the following occur: No concerns reported Coding Level of Care Code Est Pt Level 4 (51843) Est Pt Prev Care 18-39y(88829) Diagnoses Annual physical exam Z00.00 Bilateral low back pain with bilateral sciatica, unspecified chronicity M54.42; M54.41 Chronicity: unspecified Back pain laterality: bilateral Sciatica presence: with sciatica Sciatica laterality: bilateral sciatica Thrombophlebitis of superficial veins of both lower extremities I80.03 Superficial thrombophlebitis-Involved body area: lower extremity Laterality: bilateral Hypercholesterolemia E78.00 Vitamin D deficiency E55.9 Assessment & Plan Assessment & Plan (1) Annual physical exam: Code(s): Z00.00 - Encounter for general adult medical examination without abnormal findings Category: Medical Plan: Up-to-date with flu vaccine, Tdap (02/2022) Pap smear 08/2021: NILM, neg HPV - reports had Pap smear done today 11/03/25 at [facility] (2) Low back pain: Code(s): M54.50 - Low back pain, unspecified Category: Medical Qualifiers: Chronicity: unspecified Back pain laterality: bilateral Sciatica presence: with sciatica Sciatica laterality: bilateral sciatica Qualified Code(s): M54.42 - Lumbago with sciatica, left side; M54.41 - Lumbago with sciatica, right side Plan: Patient was seen in clinic on 09/08/2025 for complaints of low back pain, had X ray lumbar spine that showed mild L5-S1 disc degeneration, prescribed tramadol 50 mg daily for 7 days, but discontinued it due to side effects of headaches and fatigue. Continues to endorse intermittent low back pain radiating to both legs, exacerbated by prolonged sitting. Plan -start naproxen 500 mg twice daily for 5 days, then on as-needed basis. Do not combine with other NSAIDs like ibuprofen, meloxicam. Take with food and glass of water. -referral to physical therapy provided further treatment (3) Superficial thrombophlebitis: Comment: March 2022 Positive superficial thrombus in the right greater saphenous vein at the level of the mid thigh. Code(s): I80.9 - Phlebitis and thrombophlebitis of unspecified site Category: Medical Qualifiers: Superficial thrombophlebitis-Involved body area: lower extremity Laterality: bilateral Qualified Code(s): I80.03 - Phlebitis and thrombophlebitis of superficial vessels of lower extremities, bilateral Plan: Patient reports history of superficial thrombophlebitis in bilateral legs during her . She is concerned about intermittent pain, warmth, and enlargement of bumps in those areas. Physical exam remarkable for varicose veins. To evaluate the current status and rule out any complications, a bilateral lower extremity venous ultrasound is ordered. (4) Hypercholesterolemia: Code(s): E78.00 - Pure hypercholesterolemia, unspecified Category: Medical Plan: Patient has history of hyperlipidemia, last lipid panel in December 2024 shows elevated LDL of 134, HDL of 39. Check lipid panel, CMP, A1c. (5) Vitamin D deficiency: Code(s): E55.9 - Vitamin D deficiency, unspecified Category: Medical Plan: Vitamin-D level of 23.5 from December 2024. Repeat vitamin-D level Orders: Orders US venous duplex LE BI Today M79.604 - Pain in right leg, M79.605 - Pain in left leg Comprehensive Met. Panel Today Z00.00 - Encounter for general adult medical examination without abnormal findings Complete Blood Count Auto Diff Today Z00.00 - Encounter for general adult medical examination without abnormal findings Lipid Panel with Reflex Today Z13.220 - Encounter for screening for lipoid disorders Vitamin D 25-OH (D2 and D3) Today E55.9 - Vitamin D deficiency, unspecified IRON PROFILE Today D64.9 - Anemia, unspecified Hemoglobin A1c Today Z13.1 - Encounter for screening for diabetes mellitus PT Evaluation and Treatment Today M54.50 - Low back pain, unspecified Medications: New naproxen 500 mg PO BID 20 tabs 0RF Discontinued ibuprofen Discontinued Reason: Doctor's Order 600 mg PO Q8H PRN 60 tabs 0RF pain R10.2 - Pelvic and perineal pain tramadol Discontinued Reason: Patient no longer taking 50 mg PO DAILY 7 tabs 0RF M54.50 - Low back pain, unspecified
[2025-11-03 11:08] VITALS: BP 98/64; PULSE 75; RESP 18; O2SAT 98; BMI 31.3
== END 2025-11-03 11:54 | disposition home or self-care (01) ==
LOC: HO.HMCH 10:58
PROVIDERS: PCP Internal Medicine; Visit Provider Student in an Organized Health Care Education/Training Program
DX: Z00.00 Encounter for general adult medical examination without abnormal findings (principal); M54.42 Lumbago with sciatica, left side; M54.41 Lumbago with sciatica, right side; I80.03 Phlebitis and thrombophlebitis of superficial vessels of lower extremities, bilateral; E78.00 Pure hypercholesterolemia, unspecified; E55.9 Vitamin D deficiency, unspecified